=== PATIENT | female | born 1955 | race Caucasian/White ===

== ENCOUNTER 2022-09-14 22:22 | Outpatient (CLI) | payer OTHER, MEDICARE, SELFPAY ==
[2022-09-14 13:28] LABS: Albumin* 4.7 g/dL (3.3-5.0); Chloride* 103 mmol/L (96-114); Sodium* 136 mmol/L (135-149)
[2022-09-14 13:29] LABS: Potassium* 4.5 mmol/L (3.6-5.1)
[2022-09-14 13:31] LABS: Alkaline Phosphatase* 70 U/L (40-150); Aspartate Amino Transferase* 41 U/L (12-35); Bilirubin Total* 0.8 mg/dL (0.1-1.5); Blood Urea Nitrogen* 20 mg/dL (7-30); Carbon Dioxide* 23 mmol/L (20-32); Cholesterol* 168 mg/dL (90-199); Creatinine* 1.1 mg/dL (0.5-1.5); Estimated Glomerular Filt Rate 55 ml/min; Glucose* 111 mg/dL (60-115); Total Protein* 7.6 g/dL (6.0-8.3); Triglycerides* 303 mg/dL (40-149)
[2022-09-14 13:32] LABS: Alanine Aminotransferase* 27 U/L (4-35); Calcium* 9.7 mg/dL (8.4-10.6); HDL Cholesterol* 48 mg/dL (>=50); LDL Cholesterol Calculated 59 mg/dL (<100)
[2022-09-14 14:40] LABS: Free T4 Free Thyroxine* 1.02 ng/dL (0.70-1.85)
== END 2022-09-14 22:23 | disposition home or self-care (01) ==
PROVIDERS: PCP Physician Assistant Medical; Visit Provider Physician Assistant Medical
DX: Z00.00 Encounter for general adult medical examination without abnormal findings (principal); E03.9 Hypothyroidism, unspecified; Z13.6 Encounter for screening for cardiovascular disorders
CPT/HCPCS: 80053; 80061; 84439; 84443

== ENCOUNTER 2022-12-10 10:45 | Outpatient (CLI) | payer OTHER, SELFPAY | END 2022-12-10 10:46 | disposition home or self-care (01) | PROVIDERS: PCP Physician Assistant Medical; Visit Provider Physician Assistant Medical | DX: Z00.00 Encounter for general adult medical examination without abnormal findings (principal); E03.9 Hypothyroidism, unspecified; D64.9 Anemia, unspecified; R73.01 Impaired fasting glucose; I10 Essential (primary) hypertension; E66.01 Morbid (severe) obesity due to excess calories; E78.5 Hyperlipidemia, unspecified; R53.83 Other fatigue; R79.89 Other specified abnormal findings of blood chemistry | CPT/HCPCS: 84439; 84443 ==

== ENCOUNTER 2023-02-27 14:33 | Outpatient (CLI) | payer OTHER, SELFPAY ==
--- OUTSIDE RECORDS SUMMARY | 2023-02-27 14:36 | XMS_ITS | Continuity of Care Document ---
Author Name Unknown Organization [facility] Address [address] [place] [address] Phone Care Team Providers Care Hardware Developer Name Role Phone Matt Vizcarra Unavailable Unavailable Allergies, Adverse Reactions, Alerts Substance Reaction Status Criticality No Known Allergies Active No Inform ation Medications Medication Instructions Dosage Effective Dates (start - stop) Status Comments IRON (unknown strength) Not Available - Active TIROSINT (unknown strength) Not Available - Active ATENOLOL (unknown strength) Not Available - Active FLUOXETINE HCL (unknown strength) Not Available - Active ASPIRIN (unknown strength) Not Available - Active CRESTOR (unknown strength) Not Available - Active OMEPRAZOLE (unknown strength) Not Available - Active BUPROPION HCL (unknown strength) Not Available - Active Procedures Procedure Date Office/Outpatient Visit,[facility] 2014 Advance Directives Directive Yes / No Effective Date File Name No Information Encounters Encounter Description Practice Location Reason(s) For Visit Diagnoses Date Provider Providers Copied on Encounter [facility], [address], [place], [id number] , [place] tel:[phone] No Information 5 Lilia Gutierrez. [facility], [address], [address], [place], [id number] , [place]. tel:[phone] Office/Outpat ient Visit,[facility], [address], [place], [id number] , [place] [phone] [facility] [place] LumbagoAcquired spondylolisthesis 5 Maryuriguerita Matt. [facility], [address], [address], [place], [place], [id number] , [place]. tel:[phone] Referring Provider: Brian Rodriguez, [facility] [address], [address], [place], [address] . tel:[phone] Family History Family Member Type Diagnosis Age At Onset No Information Payers Payer name Insurance type Covered green party ID Authorsilvia castro(s) [facility] [id number] [facility] [id number] Social History Type Description Quantity Date Captured Comments Sex Female Smoking Status No Information Chief Complaint And Reason For Visit No Information Reason For Referral Reason For Referral No Information Plan Of Treatment Date Type Action Status Future Order: Radiology Order AP /Lat/Flex/Ext Lumb (APLatFlExL), Ordered on: Ordered History Of Present Illness Encounter Date Complaint History Of Prese nt Illness No Information Functional Status Date Functional Assessmen t No Information Instructions Date Instruction Additional Infor mation No Information Assessments Type Assessment Date No Information Patient Care Teams Name Effective Dates (start - stop) Status Members No Information
--- NOTE | 2023-02-27 15:00 | CRLHL7_ITS ---
For Patients: As a result of the Cures Act, medical imaging exams and procedure reports are released immediately into your electronic medical record. You may view this report before your referring provider. If you have questions, please contact your health care provider. BILATERAL SCREENING MAMMOGRAM WITH COMPUTER-AIDED DETECTION AND TOMOSYNTHESIS TECHNIQUE: CC and MLO views were obtained. These mammographic images have been obtained using full-field digital technique. These mammographic images were interpreted with the benefit of computer-aided detection. Breast Tomosynthesis was used in this interpretation. COMPARISON FILM: 10/31/21, 11/01/20, 10/26/19. FINDINGS: The breasts are almost entirely fatty IMPRESSION: There is no radiographic evidence for malignancy. ASSESSMENT: BI-RADS Category 1: Negative RECOMMENDATION: Routine screening mammogram in 1 year. A lay language report of this examination will be provided to the patient. Rohan Nguyen M.D. Diagnostic/Nuclear Medicine Radiologist [email or web address] FREDERICK/Dictated by: Rohan Nguyen MD @ 03/01/2023 9:52:00 AM (Electronically Signed)
== END 2023-02-27 14:34 | disposition home or self-care (01) ==
LOC: MAMMO 14:34
PROVIDERS: PCP Physician Assistant Medical; Visit Provider Physician Assistant Medical
DX: Z12.31 Encounter for screening mammogram for malignant neoplasm of breast (principal)
CPT/HCPCS: 77063; 77067

== ENCOUNTER 2023-03-04 11:11 | Outpatient (CLI) | payer OTHER, SELFPAY ==
--- OUTSIDE RECORDS SUMMARY | 2023-03-04 11:14 | XMS_ITS | Continuity of Care Document ---
Author Name Unknown Organization [facility] Address [address] [place] [address] Phone Care Team Providers Care Dinker Name Role Phone Matt Vizcarra Unavailable Unavailable [...] Available - Active Procedures Procedure Date Office/Outpatient Visit,[facility] 2014 Advance Directives Directive Yes / No Effective Date File Name No Information Encounters Encounter Description Practice Location Reason(s) For Visit Diagnoses Date Provider Providers Copied on Encounter [facility], [address], [place], [id number] , [place] tel:[phone] No Information 5 Lilia Gutierrez. [facility], [address], [address], [place], [id number] , [place]. tel:[phone] Office/Outpat ient Visit,[facility], [address], [place], [id number] , [place] [phone] [facility] [place] LumbagoAcquired spondylolisthesis 5 Maryuriguerita Matt. [facility], [address], [address], [place], [place], [id number] , [place]. tel:[phone] Referring Provider: Brian Rodriguez, [facility] [address], [address], [place], [address] . tel:[phone] Family History Family Member Type Diagnosis Age At Onset No Information Payers Payer name Insurance type Covered libertarian ID Authorsilvia castro(s) [facility] [id number] [facility] [id number] Social History Type Description Quantity Date Captured [...]
== END 2023-03-04 11:12 | disposition home or self-care (01) ==
PROVIDERS: PCP Physician Assistant Medical; Visit Provider Physician Assistant Medical
DX: E03.9 Hypothyroidism, unspecified (principal); D64.9 Anemia, unspecified; E66.01 Morbid (severe) obesity due to excess calories; I10 Essential (primary) hypertension; E78.5 Hyperlipidemia, unspecified; R53.83 Other fatigue; R79.89 Other specified abnormal findings of blood chemistry; R73.01 Impaired fasting glucose
CPT/HCPCS: 82607; 84443

== ENCOUNTER 2023-12-19 08:55 | Outpatient (CLI) | payer OTHER, SELFPAY ==
--- OUTSIDE RECORDS SUMMARY | 2023-12-19 08:58 | XMS_ITS | Encounter Summary ---
Author Name Unknown Organization [facility] Address [address] [place] [address] Care Team Providers Care Wood Handler Name Role Phone Ira Quinonez P.A.-C. Primary Care Provider [phone] Reason for Referral * Outpatient (Routine) - Authorized Specialty Diagnoses / Procedures Referred By Steffany bhatti Referred To Contact Ira Quinonez P.A.-C. [address], [place] [address] [facility] Region Referral ID Status Reason Start Date Expiration Date V isits Requested Visits Authorized [id number] Authorized 11/12/2023 05/13/2025 1 1 Scheduling Instructions Nurse AWV Do not schedule prior to due date to ensure insurance coverage Visit: Medicare Annual Wellness Never done. 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 [address] [place] [address] [facility] Region Referral ID Status Reason Start Date Expiration Date V isits Requested Visits Authorized [id number] Authorized 11/12/2023 05/13/2025 1 1 Scheduling Instructions Medicare annual provider visit/HCC gaps Do not schedule prior to due date to ensure insurance coverage Visit: Medicare Annual Wellness Never done. 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 [address] [place] [phone] [facility] Region Referral ID Status Reason Start Date Expiration Date V isits Requested Visits Authorized [id number] Authorized 11/12/2023 11/11/2024 1 1 CLEANING MACHINE OPERATOR Encounter Details Date Type Department Care Team (Late st Contact Info) Description 11/12/2023 Orders [facility] [address] [address] Screening Examination Diabetes Mellitus; Deficiency Estrogen Post Menopausal; Hyperlipidemia Social History Tobacco Use Types Packs/Day Years Used Date Smoking Tobacco: Former Smokeless Tobacco: Former Alcohol Use Standard Drinks/Week Comments Yes 7 (1 standard drink = 0.6 oz pur e alcohol) [facility] Utilities Answer Date Recorded In the past 12 months has [facility] [employer], gas, oil, or water [email or web address] threatened to shut off services in your home? No 09/10/2023 Humiliation, Afraid, Rape, and Kick questionnair e Answer Date Recorded Within the last year, have y ou been afraid of your partner or ex-partner? No 06/15/2021 Within the last year, have y ou been humiliated or emotionally abused in other ways by your partner or ex-partner? No Within the last year, have y ou been kicked, hit, slapped, or otherwise physically hurt by your partner or ex-partner? No 06/15/2021 Within the last year, have y ou been raped or forced to have any kind of sexual activity by your partner or ex-partner? No 06/15/2021 Social Connection and Isolat ion Panel [NHANES] Answer Date Recorded In a typical week, how many times do you talk on the phone with family, friends, or neighbors? More than three times a week 06/15/2021 How often do you get togethe r with friends or relatives? More than three times a week 06/15/2021 How often do you attend chur ch or jain services? More than 4 times per year 06/15/2021 Do you belong to any clubs o r organizations such as buddhism groups, unions, fraternal or athletic groups, or school groups? Yes 06/15/2021 How often do you attend meet ings of the clubs or organizations you belong to? More than 4 times per year 06/15/2021 Are you , , di vorced, , never , or living with a partner? 06/15/2021 AUDIT-C Answer Date Recorded Q1: How often do you have a drink containing alc ohol? 2-3 times a week 06/15/2021 Q2: How many drinks containi ng alcohol do you have on a typical day when you are drinking? 1 or 2 06/15/2021 Q3: How often do you have si x or more drinks on one occasion? Never 06/15/2021 Overall Financial Resource Strain (CARDIA) Answe r Date Recorded How hard is it for you to pa y for the very basics like food, housing, medical care, and heating? Not hard at all 06/15/2021 PHQ-2 Answer Date Recorded PHQ-2 Score 0 06/19/2021 [facility] - Occupational Stress Questionnaire Answer Date Recorded Do you feel stress - tense, restless, nervous, or anxious, or unable to sleep at night because your mind is troubled all the time - these days? Only a little 06/15/2021 Exercise Vital Sign Answer Date Recorde d On average, how many days pe r week do you engage in moderate to strenuous exercise (like a brisk walk)? Patient declined On average, how many minutes do you engage in exercise at this level? Patient declined 09/10/2023 Hunger Vital Sign Answer Date Recorded Within the past 12 months, y ou worried that your food would run out before you got the money to buy more. Never true 09/10/19 24 Within the past 12 months, t he food you bought just didn't last and you didn't have money to get more. Never true 09/10/2023 PRAPARE - Transportation Answer Date Re corded In the past 12 months, has l ack of transportation kept you from medical appointments or from getting medications? No 10/2023 In the past 12 months, has l ack of transportation kept you from meetings, work, or from getting things needed for daily living? No 09/10/2023 Nutrition Answer Date Recorded Nutrition: EVOO Fat Source Yes 09/10 On average, how many serving s of fruits and vegetables do you eat per day (serving size is equal to 1 cup or approximately the size of a tennis ball)? 0-2 09/10/2023 Dental Answer Date Recorded Dental: Regular Dentist Yes 09/14/19 Employment Answer Date Recorded Employment status Retired 09/10/2023 Housing Stability Answer Date Recorded What is your living situation today? I have a [facility] place to live 09/10/2023 Education Answer Date Recorded What is the highest level of school you have completed or the highest degree you have received? Associate degree: occupational, technical, or vocational program 12/01/2020 Sex and Gender Information Value Date Recorded Sex Assigned at Female 12/30/2018 5:42 PM CDT Gender Identity Female 12/30/2018 5:42 PM CDT Sexual Orientation Straight 12/30/2018 5: 42 PM CDT documented as of this encounter Plan of Treatment Scheduled Orders Name Type Priority Associated Diagnoses Orde r Schedule Glucose, Fasting Lab Routine Screening Examination Diabetes Mellitus Expected: 11/26/2023, Expires: 05/10/2024 BMD Bone Density Spine Hips Imaging RAD - Routine (most inpatients and all outpatients) Deficiency Estrogen Post Menopausal Expected: 11/26/2023, Expires: 05/10/2024 Lipid Panel Lab Routine Hyperlipidemia Expected: 11/26/2023, Expires: 05/10/2024 Scheduled Referrals Name Type Priority Associated Diagnoses Orde r Schedule Family Medicine office visit (clinic) Outpatient Referral Routine Expected: 12/10/2023, Expires: 05/10/2024 Primary Care nurse visit (clinic) - [facility]; Medicare Annual Wellness Outpatient Referral Routine Expected: 12/10/2023, Expires: 05/10/2024 documented as of this encounter Visit Diagnoses Diagnosis Screening Examination Diabetes Mellitus Deficiency Estrogen Post Menopausal Hyperlipidemia documented in this encounter Additional Health Concerns Assessment Noted Time PHQ-9 Depression Total Score: 4 08/06/20 17 8:54 AM 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 [address] [address] PCP - General 11/24/20 documented as of this encounter
--- OUTSIDE RECORDS SUMMARY | 2023-12-19 08:58 | XMS_ITS | Clinical Summary ---
Author Name Unknown Organization [facility] Address [address] [place] [address] Care Team Providers Care Tank Charger Name Role Phone Ira Quinonez P.A.-C. Primary Care Provider [phone] Source Comments Patient records contain information from all sites at [facility]. For routine questions regarding patient records, call [phone] during business hours, M-F 8:00 AM - 5:00 PM Central Time. Record requests for emergency care only can be directed to [phone] at any time.[facility] Allergies Active Allergy Reactions Criticality Noted Date Comments Lisinopril Cough 11/22/2017 Medications Medication Sig Dispensed Refills Start Date End Date Status aspirin (LO-DOSE ASPIRIN) [address] tablet Take 1 tablet by mouth daily. 0 05/01/2010 Active atenolol (for_TENORMIN) 50 mg tablet Take 1 tablet by mouth daily. 0 06/29/2016 Active multivitamin tablet Take by mouth daily. 0 05/01/2010 Active rosuvastatin (for_CRESTOR) 20 mg tablet Take 20 mg by mouth daily. 0 Active chlorthalidone (for_HYGROTEN) 50 mg tablet Take 50 mg by mouth daily. 0 Active FLUoxetine (for_PROzac) 40 mg capsule Take 1 capsule (40 mg total) by mouth daily. 90 capsule 3 08/06/2017 Active levothyroxine (for_SYNTHROID, LEVOTHROID) 112 mcg tablet Take 1 tablet (112 mcg total) by mouth daily. 90 tablet 3 08/06/2017 Active pfeipbuj-ozyhzp-RJ -thonzonium (CORTISPORIN-TC) 3.3-3-10-0.5 mg/mL drops,suspension Administer 5 drops into each ear 3 (three) times a day as needed (ear itch). 30 mL 3 08/06/2017 Active omeprazole 20 mg tablet,delayed release (DR/EC) Take 1 tablet (20 mg total) by mouth daily. 90 tablet 3 08/06/2017 Active buPROPion (WELLBUTRIN SR) 150 mg 12 hr tablet Take 1 tablet (150 mg total) by mouth daily. Appt due please 90 tablet 0 08/11/2018 Active irbesartan (AVAPRO) 150 mg tablet Take 150 mg by mouth daily. 0 Active spironolactone (ALDACTONE) 25 mg tablet Take 25 mg by mouth daily. 0 Active melatonin 1 mg tablet Take 10 mg by mouth at bedtime. 0 Active ferrous sulfate 325 mg (65 mg iron) tablet Take 325 mg by mouth daily. 0 Active nystatin (NYSTOP) 100,000 unit/gram powder Apply 1 application topically 2 (two) times a day. PRN 0 Active clobetasoL (TEMOVATE) 0.05 % cream Apply 1 application topically as needed. PRN 0 Active triamcinolone (KENALOG) 0.5 % cream Apply 1 application topically as needed. 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 12/02/2020 Hernia Hiatal 12/02/2020 Elevated Liver Function Test 12/02/2020 Chronic Gastric Ulcer Without Hemorrhage Or Perf oration 12/02/2020 Morbid Obesity Body Mass Ind ex Greater Than Or Equal To 40 Adult 08/06/2017 Hypothyroidism 08/06/2017 Gastroesophageal Reflux Disease 08/06/2017 Palpitations 01/03/2017 Sciatica 06/29/2016 Dyspnea On Exertion 01/18/2015 Radiculopathy Lumbar 06/26/2010 Stress Incontinence Female Male 09/07/2009 Hypertension Essential Primary 08/29/2009 Overview: Hypertension Pure Hypercholesterolemia 08/29/2009 Overview: Depression Anxiety Apnea Sleep Obstructive 08/29/2009 Rosacea 04/21/2007 Hyperlipidemia 04/21/2007 Depression Anxiety 04/21/2007 Encounters Date Type Department Care Team Description 11/12/2023 Orders Only [facility] Ira Quinonez P.A.-C. 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 Cataract Senile Nuclear Sclerosis Bilateral (Primary Dx); Myopia Bilateral from Last 3 Months Immunizations Name Administration Dates Next Due DTaP (Infanrix, Tripedia) 04/28/2009 H1N1 All Forms 08/29/2009 H1N1 Inj 08/24/2009 Influenza (IM) Preservative Free 08/29/2009,09/2007 Influenza Split 08/29/2009 Influenza TIV (IM) 06/18/2012,,08/20/2009,2006 Influenza high dose QV(65 ye ars or older) (PF) 08/18/2021 Influenza, Injectable, Quadrivalent 06/09,07/01/2019,07/03/2018,2014 Influenza, Seasonal, Injectable 06/18/2012,07/02,07/14/2007 Influenza, Unspecified 06/20/2017,2015,06/21/2015,2013,06/28/2010,07/14/2007 RZV (SHINGRIX) 02/28/2021,11/02/2020 SARS-COV-2 (COVID-19) - MODERNA(Discontinued) 03/06/2022,08/18/2021,12/26/2020,2020 Td Preservative Free (TENIVA C, DECAVAC) 04/28/2009,02/26/2000 Td, (Adult) Unspecified 04/09/2009,02/26/2000 Tdap 10/05/2019,04/28/2009 influenza vaccine QV(FLUBLOK ) (18 years or older) (PF) 06/21/2020 influenza vaccine quad (FLUZONE/FLUARIX) (6 months and older)(PF) 07/03/2018,06/20/2017,06/29/2016,2012 Family History Medical History Relation Name Comments Coronary artery disease Brother Heart attack Brother Hyperlipidemia Brother Hypertension Brother Coronary artery disease Father Heart attack Father Hyperlipidemia Father Hypertension Father Breast cancer Father's Sister Stroke Grandfather Coronary artery disease Mother Heart attack Mother Hyperlipidemia Mother Relation Name Status Comments Brother (Age 46) Cause [place] Father (Age 65) [place] Father's Sister Alive Grandfather Stroke at early age Mother (Age 62) Cause [place] Social History Tobacco Use Types Packs/Day Years Used Date Smoking Tobacco: Former Smokeless Tobacco: Former Alcohol Use Standard Drinks/Week Comments Yes 7 (1 standard drink = 0.6 oz pur e alcohol) [facility] [employer] Answer Date Recorded In the past 12 months has e [employer], [employer], oil, or water [employer] threatened to shut off services in your [...] week 06/15/2021 How often do you attend up health system or anabaptist services? More than 4 times per year 06/15/2021 Do you belong to any clubs o r organizations such as tenriism groups, unions, fraternal or athletic groups, or [...] Answer Date Recorded PHQ-2 Score 0 06/19/2021 [facility] - Occupational Stress [...] your living situation today? I have a [facility] place to live 09/10/2023 Education Answer [...] Orientation Straight 12/30/2018 5: 42 PM CDT Last Filed Vital Signs Vital Sign Reading Time Taken Comments Blood Pressure 114/69 06/19/2021 9:[address] Pulse 66 06/19/2021 9:22 AM CDT Temperature 36.4 ??C (97.5 ??F) 06/19/2021 9:22 AM CD T Respiratory Rate 16 06/19/2021 9:22 AM CDT Oxygen Saturation 95% 06/19/2021 9:22 AM CDT Inhaled Oxygen Concentration - - Weight 126 kg (277 lb 9 oz) 06/19/2021 9:22 AM C DT Height 162 cm (5' 3.78) 06/19/2021 9:22 AM CDT Body Mass Index 47.97 06/19/2021 9:22 AM CDT Plan of Treatment Health Maintenance Due Date Last Done Comments Bone Density Scan (Osteoporo sis Screen) 1956 CT Colonography 1955 Cologuard 1955 Office Visit for Blood Press ure Check / Re-check 1955 Visit: Medicare Annual Wellness 1955 Thyroid Stimulating Hormone (TSH) test for thyroid function 12/28/2017 12/28/2016, 09/11/2016, 06/29/2016, Additional history exists Creatinine Level (Kidney Fun ction Test) 05/14/2019 05/14/2018, 04/23/2018, 02/20/2018, Additional history exists Potassium Level 05/14/2019 05/14/2018, 04/09, 02/20/2018, Additional history exists Sodium Level 05/14/2019 05/14/2018, 04/09, 02/20/2018, Additional history exists Fasting Glucose for Diabetes Screening 05/14/2021 05/14/2018, 04/23/2018, 02/20/2018, Additional history exists Visit: Chronic Disease, age 18+ 06/19/2022 Mammogram 10/31/2022 10/31/2021, 10/11, 10/26/2019, Additional history exists Depression Screening (Annual PHQ-2) 09/09/2023 Fall Risk Screen (Annual) 09/09/2023 Lipid (Cholesterol) Screening 02/10/2024, 12/28/2016, 11/14/2016, Additional history exists Colonoscopy 07/06/2024 07/06/2021, 05/10, 02/04/2015, Additional history exists Colorectal Cancer Surveillance 07/06/2024 DTaP,Tdap,and Td Vaccines (5 - Td or Tdap) 10/05/2029 10/05/2019, 04/28/2009, 04/28/2009, Additional history exists Hepatitis C Screening Completed 08/06/2017 Zoster Vaccines Completed 02/28/2021, 11/02/2020 Cervical Cancer Screening Discontinued 2020, 05/02/2020, 08/18/2018, Additional history exists Pneumococcal vaccine (65+ years) Completed 12/11/19, 11/13/2021 COVID-19 Vaccine Completed 06/26/2023, , 08/18/2021, Additional history exists Influenza Vaccine Completed 06/26/2023, , 08/18/2021, Additional history exists Advance Directives For more information, please contact: [phone] Documents on File Type Date Recorded 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 See document viewer. Care Teams Tank Charger Relationship Specialty Start Date End Date Ira Quinonez P.A.-C. [address] [place] [place] [address] PCP - General 11/24/20
--- OUTSIDE RECORDS SUMMARY | 2023-12-19 08:58 | XMS_ITS | Referral Summary ---
Author Name Unknown Organization [facility] Address [address] [place] [address] Care Team Providers Care Assurance Assistant Name Role Phone Ira QuinonezAJames-C. Primary Care Provider [phone]- [phone] Source Comments Patient records contain information from all sites at [facility]. For routine questions regarding patient records, call [phone] during business hours, M-F 8:00 AM - 5:00 PM Central Time. Record requests for emergency care only can be directed to [phone] at any time.[facility] Encounters Date Type Department Care Team Description 11/12/2023 Orders Only [facility] PCP [facility] MNT Ira Quinonez, P.A.-C. Screening Examination Diabetes Mellitus; Deficiency Estrogen Post Menopausal; Hyperlipidemia 09/24/2023 10:30 AM TURPENTINE FARMER Office Visit Department of Ophthalmology in [place], [place] [address] [facility] [place] [phone] Dae Sánchez M.D. Cataract Senile Nuclear Sclerosis Bilateral (Primary Dx); Myopia Bilateral from Last 3 Months Allergies Active Allergy Reactions Criticality Noted Date [...] mouth daily. 90 tablet 3 08/06/2017 Active ucvohres-rvvbag-VZ -thonzonium (CORTISPORIN-TC) 3.3-3-10-0.5 mg/mL drops,suspension Administer 5 [...] Rosacea 04/21/2007 Hyperlipidemia 04/21/2007 Depression Anxiety 04/21/2007 Immunizations Name Administration Dates Next Due DTaP [...] quad (FLUZONE/FLUARIX) (6 months and older)(PF) 07/03/2018,06/20/2017,06/29/2016,2012 Social History Tobacco Use Types Packs/Day Years Used Date Smoking Tobacco: Former Smokeless Tobacco: Former Alcohol Use Standard Drinks/Week Comments Yes 7 (1 standard drink = 0.6 oz pur e alcohol) [facility] Utilities Answer Date Recorded In the past 12 months has e [employer], [employer], or water [employer] threatened to shut off services in your [...] 06/15/2021 How often do you attend chur or evangelical services? More than 4 times per year 06/15/2021 Do you belong to any clubs o r organizations such as mosque groups, unions, fraternal or athletic groups, or [...] Answer Date Recorded PHQ-2 Score 0 06/19/2021 [facility] - [...] Date Recorded Dental: Regular Dentist Yes 09/14/19 23 Employment Answer Date Recorded Employment status Retired 09/10/2023 Housing Stability Answer Date Recorded What is your living situation today? I have a [facility] [place] place to live 09/10/2023 Education Answer Date [...] 06/19/2021 9:22 AM CDT Plan of Treatment Not on file Advance Directives For more information, please contact: [phone] Documents on File Type Date Recorded Patient Financial Data Analyst Expl anation Advance Directives 02/05/2012 12:00 AM Leg acy document. See document viewer. Care Teams Assurance Assistant Relationship Specialty Start Date End Date Ira Quinonez P.A.-C. [address] [place] [address] PCP - General 11/24/20
--- OUTSIDE RECORDS SUMMARY | 2023-12-19 08:58 | XMS_ITS | Clinical Summary ---
Author Name Unknown Organization [facility] Address [place], [place] [address] Care Team Providers Care Bark Skinner Name Role Phone Teena Gaytan PA-C Primary Care Provider [phone] Allergies Active Allergy Reactions Criticality Noted Date Comments Lisinopril Cough 11/22/2017 Medications Medication Sig Dispensed Refills Start Date End Date Status fluoxetine (PROZAC) 40 mg capsule Take 40 mg by mouth every morning. Active OMEPRAZOLE ORAL Take 20 mg by mouth once daily. Active multivitamin (MVI) tablet Take 1 Tablet by mouth once daily. Active aspirin 81 mg tablet Take 81 mg by mouth once daily with a meal. Active triamcinolone 0.5% (ARISTOCORT) 0.5 % cream APPLY TOPICALLY TO AREAS OF ITCHING / BUG BITES TWICE DAILY NEEDED 06/02/2020 Active levothyroxine (SYNTHROID) 150 mcg tabletIndications:Hy pothyroidism, unspecified type Take 1 Tablet (150 mcg) by mouth before breakfast. 09/23/2023 Active metFORMIN (GLUCOPHAGE XR) 500 mg Extended-Release tablet Take 500 mg by mouth two times daily with meals. 07/15/2023 Active atenoloL (TENORMIN) 50 mg tabletIndications:HT N (hypertension) Take 1 Tablet (50 mg) by mouth once daily. 90 Tablet 3 09/23/2023 Active irbesartan (AVAPRO) 300 mg tabletIndications:Hy pertension, unspecified type Take 1 Tablet (300 mg) by mouth once daily. 90 Tablet 3 09/23/2023 Active rosuvastatin (CRESTOR) 20 mg tabletIndications: HD (arteriosclerotic heart disease) Take 1 Tablet (20 mg) by mouth once daily. 90 Tablet 3 09/23/2023 Active spironolactone (ALDACTONE) 25 mg tabletIndications:HT N (hypertension),Edema , unspecified type Take 1 Tablet (25 mg) by mouth once daily. 90 Tablet 3 09/23/2023 Active chlorthalidone (HYGROTON) 50 mg tabletIndications:HT N (hypertension) Take 1 Tablet (50 mg) by mouth every morning. 90 Tablet 3 09/23/2023 Active Active Problems Problem Noted Date Diagnosed Date ASHD (arteriosclerotic heart disease) 01/03/2017 Palpitations 01/03/2017 HTN (hypertension) 01/03/2017 Dyslipidemia 01/03/2017 JONATHON (obstructive sleep apnea) 01/03/2017 Urinary, incontinence, stress female 09/07/2009 Encounters Date Type Department Care Team Description 09/23/2023 2:30 PM EMBOSSING TOOL SETTER Office Visit [facility] [address] [place] [phone] Michi Urbina MD Follow Up (Annual F/U Pt states feeling well today, no current cardiac symptoms at this time. Here so she can get refills on all cardiac meds. ) 09/23/2023 Travel 09/23/2023 Refill [facility] [address] [place] [phone] Michi Urbina MD Refill Request (Chlorthalidone) from Last 3 Months Immunizations Name Administration Dates Next Due DTaP 04/28/2009 Influenza A (H1N1), Inactivated 08/29/2009 Influenza A (H1N1), Inactiva joseph (Age >=3 Years) 08/24/2009 Influenza Virus, Unspecified 06/20/2017, 06/29/2016,06/21/2015,2013,06/28/2010,07/14/2007 Influenza, IIV3 (Age 6-35 mos) 08/29/2009,2007 Influenza, IIV3 (Age >=3 years) 06/18/20 12,2011,08/20/2009,2006 Influenza, IIV4 07/03/2018, 7,06/29/2016,2012 Influenza, IIV4 (=>6mos) MDV 06/21/2015 Td (Age >=7 Years) 04/09/2009,02/26/2000 Td, Preservative Free (age > = 7 Years) 02/26/2000 Tdap 04/28/2009 Social History Tobacco Use Types Packs/Day Years Used Date Smoking Tobacco: Former Cigarettes Q uit: 01/04/1988 Smokeless Tobacco: Never Tobacco Cessation:Counseling Given: No Comments:Smoked about 17 years (1-1.5 packs a day) Alcohol Use Standard Drinks/Week Comments Not Currently 0 (1 standard drink = 0.6 oz pur e alcohol) social drinker Social Connections Answer Date Recorded Frequency of Communication with Friends and Fami ly Not on file 09/09/2021 Financial Resource Strain Answer Date R ecorded Difficulty of Paying Living Expenses Not on file 09/09/2021 Difficulty of Paying Living Expenses Not on file 09/09/2021 Sex and Gender Information Value Date Recorded Sex Assigned at Not on file Gender Identity Not on file Sexual Orientation Not on file Obstetrics History Last Filed Vital Signs Vital Sign Reading Time Taken Comments Blood Pressure 130/70 09/23/2023 2:14 PM EMBOSSING TOOL SETTER Pulse 66 09/23/2023 2:14 PM EMBOSSING TOOL SETTER Temperature 36.3 ??C (97.4 ??F) 07/06/2021 1 1:30 AM CDT Respiratory Rate 16 07/06/2021 11:5 7 AM CDT Oxygen Saturation 96% 09/23/2023 2:14 PM EMBOSSING TOOL SETTER Inhaled Oxygen Concentration - - Weight 133.2 kg (293 lb 9.6 oz) 09/23/2023 2:14 PM EMBOSSING TOOL SETTER Height 160 cm (5' 3) 09/23/2023 2:14 PM EMBOSSING TOOL SETTER Body Mass Index 52.01 09/23/2023 2:14 PM EMBOSSING TOOL SETTER Plan of Treatment Health Maintenance Due Date Last Done Comments Depression screening for age 12+ 1968 Hepatitis C screening for ag e 18-79 1974 Mammogram for age 45-75 2001 Zoster (shingles) series for age 50+ (1 of 2) 2006 Tetanus booster 04/28/2019 04/28/2009, 08/0 09/2008, 02/26/2000, Additional history exists DEXA/DXA scan for age 65+ 2021 Medicare Wellness for age 65+ 2021 Pneumococcal series for age 65+ (1 of 1 - PCV) 2021 Lipids for age 45-75 02/10/2024 02/09/2019, 01/23/20 18 Influenza for age 65+ 05/10/2024 07/03/2018 , 06/20/2017, 06/20/2017, Additional history exists BMI (ht and wt on same day) for age 18+ 09/23/2024 09/23/2023, 09/17/2022, 10/16/2021, Additional history exists Colonoscopy through age 75 07/06/2031 07/06/2021, Tdap Completed 04/28/2009 COVID-19 vaccine series Completed 06/26/20, 03/06/2022, 08/18/2021, Additional history exists Medical Devices Implanted Type Area Revenue Stamper Device Identifier Shelf Expiration Date Model / Serial / Lot Sys Urethral Support Align 50cm - [id number] Implanted:Qty: 1 on 09/07/2009 at [facility] 07/10/2011 [id number] / / [id number] Procedures Procedure Name Priority Date/Time Associated Diagnosis Comments COLONOSCOPY 07/06/2021 10:49 AM CDT LIPID PANEL Routine 02/09/2019 2:47 PM CDT ASHD (arteriosclerotic heart disease) from Last 3 Months or Most Recently Relevant to Health Maintenance Results * COLONOSCOPY (07/06/2021 10:49 AM CDT) 07/06/2021 10:4 9 AM CDT Narrative Transcriptions Pablo Flor MD - 07/06/2021 11:28 AM CDT Patient Name: Meliza Ho Procedure Date: 07/06/2021 Gender: Female Date of : 1955 Admit Type: Ambulatory Procedure: Colonoscopy Proceduralist: Pablo Flor MD Indications/Pre-Op Diagnosis: High risk colon cancer surveillance:Personal history of colonic polyps Medications: Monitored Anesthesia Care Procedure Description: The procedure, indications, potential complications, (bleeding, perforation, infection, adverse medication reaction, missed lesionsor polyps) and alternatives available were explained to the patient, who appeared to understand and indicated this. Opportunity for questionswas provided and informed consent obtained. The colonoscopy was passed through the anus and advanced to theterminal ileum. The colonoscopy was performed without difficulty. The patient tolerated the procedure well. The quality of the bowel preparationwas evaluated using the BBPS ([place] Bowel Preparation Scale) with scores of: Right Colon = 3, Transverse Colon = 3 and Left Colon = 3 (entire mucosa seen well with no residual staining, small fragments of stoolor opaque liquid). The total BBPS score equals 9. The ileocecal valvewas photographed. Complications: No immediate complications. Estimated Blood Loss & Specimen: Estimated blood loss: none. Findings: The perianal and digital rectal examinations were normal. Two sessile polyps were found in the transverse colon and ascending colon. The polyps were 4 to 6 mm in size. These polyps were removedwith a cold snare. Resection and retrieval were complete. The exam was otherwise without abnormality on direct and retroflexion views. Impressions/Post-Op Diagnosis: - Two 4 to 6 mm polyps in the transverse colon and in the ascending colon, removed with a cold snare. Resected and retrieved. - The examination was otherwise normal on direct and retroflexionviews. Recommendation: - Await pathology results. - Repeat colonoscopy in 3 years for surveillance. Moderate Sedation: MAC Pablo Flor MD 07/06/2021 11:28:16 AM This report has been signed electronically. Note Initiated On: 07/06/2021 10:49 AM Pablo Flor MD PROCEDURE ORD * (ABNORMAL) LIPID PANEL (02/09/2019 2:47 PM CDT) CHOLESTEROL,TOTAL 144 100 - 199 mg/dL 02/09/2019 6:46 PM CDT [facility] [employer] [facility] TRIGLYCERIDES 263(H) <150 mg/dL 02/09/2019 6:46 PM CDT [facility] HDL CHOLESTEROL 45 >40 mg/dL 9 6:46 PM CDT [facility] NON-HDL CHOLESTEROL 99 <145 mg/dl 02/09/2019 6:46 PM CDT [facility] CHOL/HDL RATIO 3.20 <4.50 02/09/2019 6:46 PM CDT [facility] LDL CHOLESTEROL 46 <=130 mg/dL 02/09/2019 6:46 PM CDT [facility] PROVIDER ORDERED STATUS RANDOM 02/09/2019 6:46 PM CDT [facility] Blood BLOOD SPECIMEN / Unknown Venipuncture / Unknown 02/09/2019 2:47 PM CDT 02/09/2019 2:47 PM CDT Michi Urbina MD CHEMISTRY [facility] [address] [place] [address], from Last 3 Months or Most Recently Relevant to Health Maintenance Advance Directives * Full Code (Latest Code Status on File) Date Activated Date Inactivated Comments 07/06/2021 10:21 AM 07/06/2021 3:31 PM Question Answer Comments Code Status Discussion: Not Discussed * Full Code Date Activated Date Inactivated Comments 05/25/2020 10:14 AM 05/25/2020 3:18 PM Question Answer Comments Code Status Discussion: Not Discussed * Full Code Date Activated Date Inactivated Comments 04/10/2010 7:43 AM 04/10/2010 5:39 PM * Full Code Date Activated Date Inactivated Comments 09/07/2009 11:27 AM 09/07/2009 11:17 PM Care Teams Bark Skinner Relationship Specialty Start Date End Date Teena Gaytan PA-C [address] [place] [address] PCP - General Emergency Medicine 04/27/20
--- OUTSIDE RECORDS SUMMARY | 2023-12-19 08:58 | XMS_ITS | Continuity of Care Document ---
Author Name Unknown Organization [facility] Address [address] [place] [address] Phone Care Team Providers Care Rotary Drum Tanner Name Role Phone Matt Vizcarra Unavailable Unavailable Allergies, Adverse Reactions, Alerts Substance Reaction Status Criticality No Known Allergies Active No Inform ation Medications Medication Instructions Dosage Effective Dates (start - stop) Status Comments BUPROPION HCL (unknown strength) Not Available - Active OMEPRAZOLE (unknown strength) Not Available - Active CRESTOR (unknown strength) Not Available - Active ASPIRIN (unknown strength) Not Available - Active FLUOXETINE HCL (unknown strength) Not Available - Active ATENOLOL (unknown strength) Not Available - Active TIROSINT (unknown strength) Not Available - Active IRON (unknown strength) Not Available - Active Procedures Procedure Date Office/Outpatient Visit,[facility] 2014 Advance Directives Directive Yes / No Effective Date File Name No Information Encounters Encounter Description Practice Location Reason(s) For Visit Diagnoses Date Provider Providers Copied on Encounter [facility], [address], [place], [id number] , [place] tel:[phone] No Information 5 Lilia Gutierrez. [facility], [address], [address], [place], [id number] , [place]. tel:[phone] Office/Outpat ient Visit,[facility], [address], [place], [id number] , [place] [phone] [facility] [place] LumbagoAcquired spondylolisthesis 5 Maryuriguerita Matt. [facility], [address], [address], [place], [place], [id number] , [place]. tel:[phone] Referring Provider: Brian Rodriguez, [facility] [address], [address], [place], [address] . tel:[phone] Family History Family Member Type Diagnosis Age At Onset No Information Payers Payer name Insurance type Covered republican ID Authorsilvia castro(s) [facility] [id number] [facility] [id number] Social History Type Description Quantity Date Captured [...]
--- OUTSIDE RECORDS SUMMARY | 2023-12-19 08:58 | XMS_ITS ---
Author Name Unknown Organization [facility] Address [address] [place] [address] Care Team Providers Care Manager Pharmacy Name Role Phone Unavailable Unavailable Unavailable Surgery Details Not on file Complications Check Surgery Details section. Procedure Estimated Blood Loss Check Surgery Details section. Procedure Findings Check Surgery Details section. Procedure Specimens Taken Check Surgery Details section.
--- OUTSIDE RECORDS SUMMARY | 2023-12-19 08:59 | XMS_ITS | Encounter Summary ---
Author Name Unknown Organization [facility] Address [address] [place] [address] Care Team Providers Care Cotton Converter Name Role Phone Ira Quinonez P.A.-C. Primary Care Provider [phone] Reason for Referral * Outpatient (Routine) - Authorized Specialty Diagnoses / Procedures Referred By Steffany bhatti Referred To Contact Procedures OPH General eye exam Dae Sánchez M.D. [address], [place] [address] [facility] Region Referral ID Status Reason Start Date Expiration Date V isits Requested Visits Authorized [id number] Authorized 09/24/2023 09/23/2024 1 1 IO MODEL Reason for Visit * Reason Comments Follow-up * Outpatient (Routine) - Closed Specialty Diagnoses / Procedures Referred By Steffany bhatti Referred To Contact Ophthalmology Dae Sánchez M.D. [address] [place] [address] [facility] Region Referral ID Status Reason Start Date Expiration Date Visits Re quested Visits Authorized [id number] Closed 09/17/2023 09/16/2026 1 1 Encounter Details Date Type Department Care Team (Latest Contact Info) Description 09/24/2023 10:30 AM STUDIO MODEL Office Visit Department of Ophthalmology in [place], [place] [address], [place] [address] Dae Sánchez M.D. [address] [place] [address] Cataract Senile Nuclear Sclerosis Bilateral (Primary Dx); Myopia Bilateral Social History Tobacco Use Types Packs/Day Years Used Date Smoking Tobacco: Former Smokeless Tobacco: Former Alcohol Use Standard Drinks/Week Comments Yes 7 (1 standard drink = 0.6 oz pur e alcohol) [facility] Utilities Answer Date Recorded In the past 12 months has e Weekend-a-gogo, gas, oil, or water [employer] threatened to shut off services in your [...] often do you attend chur ch or scientologist services? More than 4 times per year 06/15/2021 Do you belong to any clubs o r organizations such as orthodoxy groups, unions, fraternal or athletic groups, or [...] Answer Date Recorded PHQ-2 Score 0 06/19/2021 [facility] - Occupational Stress Questionnaire Answer Date Recorded [...] PM CDT documented as of this encounter Progress Notes * Dae Sánchez M.D. - 09/24/2023 10:30 AM CST Meliza Ho was seen today for Follow-up #1 Cataract Senile Nuclear Sclerosis Bilateral #2 Myopia Bilateral Plan; Update glasses. RTC one year annual exam. N/c IO MODEL documented in this encounter Plan of Treatment Scheduled Orders Name Type Priority Associated Diagnoses Orde r Schedule OPH General eye exam Procedures Routine Expe cted: 09/24/2024 (Approximate), Expires: 12/23/2024 documented as of this encounter Visit Diagnoses Diagnosis Cataract Senile Nuclear Sclerosis Bilateral- Primary Myopia Bilateral documented in this encounter Additional Health Concerns Assessment Noted Time PHQ-9 Depression Total Score: 4 08/06/20 17 8:54 AM STUDIO MODEL documented as of this encounter Care Teams Cotton Converter Relationship Specialty Start Date End Date Ira Quinonez P.A.-C. [address] [place] [phone] PCP - General 11/24/20 documented as of this encounter
--- OUTSIDE RECORDS SUMMARY | 2023-12-19 08:59 | XMS_ITS | Encounter Summary ---
Author Name Unknown Organization [facility] Address [address] [place] [address] Care Team Providers Care Retail Planner Name Role Phone Ira Quinonez P.A.-C. Primary Care Provider [phone]- [phone] Encounter Details Date Type Department Care Team (Late st Contact Info) Description 05/17/2017 Historical Ophthalmology [facility] Dae Sánchez M.D. [address] [place] [phone] Social History Tobacco Use Types Packs/Day Years Used Date Smoking Tobacco: Former Sex and Gender Information Value Date Recorded Sex Assigned at Female 12/30/2018 5:42 PM CDT Gender Identity Female 12/30/2018 5:42 PM CDT Sexual Orientation Straight 12/30/2018 5: 42 PM CDT documented as of this encounter Progress Notes * Dae Sánchez M.D. - 05/17/2017 8:53 AM CDT Eye General CHIEF COMPLAINT CE HISTORY OF PRESENT ILLNESS Pt. states eyes have been mattering, yellow in color and itchy blurried VA in both distance and near No other concerns with eyes and VA at this time IMPRESSION / REPORT / PLAN #1 Cataracts, nuclear both eyes. Stable. #2 Myopia and astigmatism both eyes. Stable. #3 Keratitis superificial both eyes. Exposure and likely CPAP related. Plan: Optional glasses change. U/v protection. Refresh PM with goggles. F./u one year. CE/ref DIAGNOSIS #1 Cataracts, nuclear both eyes. Stable. #2 Myopia and astigmatism both eyes. Stable. #3 Keratitis superificial both eyes. Exposure and likely CPAP related. CDM Reports - EYEGEN Id: [id number] Status: Fnl documented in this encounter Plan of Treatment Not on file documented as of this encounter Visit Diagnoses Not on filedocumented in this encounter Additional Health Concerns Infection Onset Date Last Indicated Resolved Time COVID19 Pending 05/22/2020 05/22/2020 05/22/2020 9 :13 PM CDT COVID19 Pending 05/20/2021 05/21/2021 05/21/2021 1 1:30 PM CDT COVID19 Pending 2021 07/03/2021 07/04/2021 8 :36 AM CDT COVID19 Pending 07/10/2021 07/10/2021 07/11/2021 2 :43 AM CDT Assessment Noted Time PHQ-9 Depression Total Score: 0 06/29/20 16 8:10 AM CDT documented as of this encounter Care Teams Retail Planner Relationship Specialty Start Date End Date Ira Quinonez P.A.-C. [address] [place] [address] PCP - General 11/24/20 documented as of this encounter
--- OUTSIDE RECORDS SUMMARY | 2023-12-19 08:59 | XMS_ITS | Encounter Summary ---
Author Name Unknown Organization [facility] Address [address] [place] [address] Care Team Providers Care Toys And Games Hand Finisher Name Role Phone Ira Quinonez P.A.-C. Primary Care Provider [phone]- [phone] Encounter Details Date Type Department Care Team (Late st Contact Info) Description 06/07/2017 Historical Ophthalmology [facility] O[facility] Dae Sánchez M.D. [address] [place] [phone] Social History Tobacco Use Types Packs/Day Years Used Date Smoking Tobacco: Former Sex and Gender Information Value Date Recorded Sex Assigned at Female 12/30/2018 5:42 PM CDT Gender Identity Female 12/30/2018 5:42 PM CDT Sexual Orientation Straight 12/30/2018 5: 42 PM CDT documented as of this encounter Progress Notes * Dae Sánchez M.D. - 06/07/2017 8:59 AM CDT Eye General CHIEF COMPLAINT Rx recheck HISTORY OF PRESENT ILLNESS Could not accept glasses from optical- too blurry at distance and near with each eye. IMPRESSION / REPORT / PLAN #1 Cataracts, nuclear both eyes. Stable. #2 Myopia and astigmatism both eyes. Unable to tolerate new Rx. Plan: Update glasses. n/c DIAGNOSIS #1 Cataracts, nuclear both eyes. Stable. #2 Myopia and astigmatism both eyes. Unable to tolerate new Rx. CDM Reports - EYEGEN Id: [id number] Status: Fnl documented in this encounter Plan [...] documented as of this encounter Care Teams Toys And Games Hand Finisher Relationship Specialty Start Date End Date Ira Quinonez P.A.-C. [address] [place] [address] PCP - General 11/24/20 documented as of this encounter
--- OUTSIDE RECORDS SUMMARY | 2023-12-19 08:59 | XMS_ITS | Encounter Summary ---
Author Name Unknown Organization [facility] Address [address] [place] [address] Care Team Providers Care Filter Filler Name Role Phone Ira Quinonez P.A.-C. Primary Care Provider [phone] Reason for Referral * Outpatient (Routine) - Closed Specialty Diagnoses / Procedures Referred By Steffany bhatti Referred To Contact Ophthalmology Dae Sánchez M.D. [address] [address] [facility] Region Referral ID Status Reason Start Date Expiration Date Visits Re quested Visits Authorized [id number] Closed 09/17/2023 09/16/2026 1 1 PLANT OPERATOR Reason for Visit * Reason Comments Eye Exam * Appointment Request (Routine) - Closed Specialty Diagnoses / Procedures Referred By Steffany bhatti Referred To Contact Ophthalmology Referral ID Status Reason Start Date Expiration Date Visits Re quested Visits Authorized [id number] Closed 06/27/2023 06/26/2024 1 1 Encounter Details Date Type Department Care Team (Latest Contact Info) Description 09/17/2023 1:15 PM ICE PLANT OPERATOR Comprehensive Visit Department of Ophthalmology in [place], [place] [address] [place] [address] Dae Sánchez M.D. [address] [place] [address] Cataract Senile Nuclear Sclerosis Bilateral (Primary Dx); Myopia Bilateral Social History Tobacco Use Types Packs/Day Years Used Date Smoking Tobacco: Former Smokeless Tobacco: Former Alcohol Use Standard Drinks/Week Comments Yes 7 (1 standard drink = 0.6 oz pur e alcohol) [facility] Utilities Answer Date Recorded In the past 12 months has th e electric, gas, oil, or water company threatened to shut off services in your [...] Answer Date Recorded PHQ-2 Score 0 06/19/2021 [facility] - Occupational Stress Questionnaire Answer Date [...] your living situation today? [facility] 09/10/2023 Education Answer Date [...] Progress Notes * Dae Sánchez M.D. - 09/17/2023 1:15 PM CST Meliza Ho was seen today for Eye Exam #1 Cataract Senile Nuclear Sclerosis Bilateral #2 Myopia Bilateral Plan: Update glasses as desired. U/v protection. Ocular lubricants twice daily. RTC trial frame. Cex/ref PLANT OPERATOR documented in this encounter Plan of Treatment Scheduled Referrals Name Type Priority Associated Diagnoses Order Schedule Ophthalmology office visit (clinic) Outpatient Referral Routine Expected: 09/24/2023 (Approximate), Expires: 12/16/2024 documented as of this encounter Visit Diagnoses Diagnosis Cataract Senile Nuclear Sclerosis Bilateral- Primary Myopia Bilateral documented in this encounter Additional Health Concerns Assessment Noted Time PHQ-9 Depression Total Score: 4 08/06/20 17 8:54 AM ICE PLANT OPERATOR documented as of this encounter Care Teams Filter Filler Relationship Specialty Start Date End Date Ira Quinonez P.A.-C. [address] [place] [address] PCP - General 11/24/20 documented as of this encounter
== END 2023-12-19 08:56 | disposition home or self-care (01) ==
PROVIDERS: PCP Physician Assistant Medical; Visit Provider Physician Assistant Medical
DX: Z13.0 Encounter for screening for diseases of the blood and blood-forming organs and certain disorders involving the immune mechanism (principal); Z13.29 Encounter for screening for other suspected endocrine disorder; Z13.6 Encounter for screening for cardiovascular disorders; Z13.228 Encounter for screening for other metabolic disorders; Z13.21 Encounter for screening for nutritional disorder
CPT/HCPCS: 80053; 80061; 82728; 83540; 83550; 84443

== ENCOUNTER 2024-01-01 14:20 | Outpatient (CLI) | payer OTHER, SELFPAY ==
--- OUTSIDE RECORDS SUMMARY | 2024-01-01 14:23 | XMS_ITS | Continuity of Care Document ---
Author Name Unknown Organization [facility] Address [address] [place] [address] Phone Care Team Providers Care Embedded Linux Engineer Name Role Phone Matt Vizcarra Unavailable Unavailable [...] Available - Active Procedures Procedure Date Office/Outpatient Visit,[facility] 2014 Advance Directives Directive Yes / No Effective Date File Name No Information Encounters Encounter Description Practice Location Reason(s) For Visit Diagnoses Date Provider Providers Copied on Encounter [facility], [address], [place], [id number] , [place] tel:[phone] No Information 5 Lilia Gutierrez. [facility], [address], [address], [place], [id number] , [place]. tel:[phone] Office/Outpat ient Visit,[facility], [address], [place], [id number] , [place] [phone] [facility] - [place] LumbagoAcquired spondylolisthesis 5 Maryuriguerita Matt. [facility], [address], [address], [place], [place], [id number] , [place]. tel:[phone] Referring Provider: Brian Rodriguez, [facility] [address], [address], [place], [address] . tel:[phone] Family History Family Member Type Diagnosis Age At Onset No Information Payers Payer name Insurance type Covered alliance party ID Authorsilvia castro(s) [facility] [id number] [facility] [id number] Social History Type Description Quantity Date Captured [...]
--- NOTE | 2024-01-01 15:00 | XR_ITS ---
Patient: IRAIDA PISANO Facility:?[facility] Patient ID:?[id number] Site Patient ID:?[id number]. Site :?[id number] Study:?DEXA-Bone Density -01/01/2024 4:03:53 PM Ordering Physician:MALCOLM Final Report: DXA BONE MINERAL DENSITY STUDY Reason for exam: Screening for osteoporosis. Current height (in): 64.0. Weight (lb): 250.0. Menopause age: 60. Ethnicity: White. 1. Have you had a previous hip or vertebral fracture? No. 2. Have you had any fractures during your adult life which did not result from significant trauma (e.g., auto accident)? No. 3. Did either of your parents have a hip fracture? No. 4. Do you smoke? No. 5. Have you ever taken Glucocorticoids? No. 6. Do you have rheumatoid arthritis? No. 7. Do you have secondary osteoporosis? No. 8. Do you drink 3 or more alcoholic drinks per day? No. 9. Are you being treated for osteoporosis? No. 10. Have you ever taken any of the following medications: Actonel, Evista, Fosamax, Miacalcin, Reclast, Boniva, Forteo, HRT (i.e. estrogen/hormone therapy), Protelos, Prolia, Vitamin D, Calcium, other ? please specify. ANSWER: No. 11. Do you have any of the following medical conditions: Anorexia or bulimia, asthma or emphysema, end stage renal disease, hyperparathyroidism, any seizure disorders, cancer, inflammatory bowel diseases, hysterectomy, other ? please specify. ANSWER: No. 12. What was your maximum height (inches)? 64. 13. Do you perform weight bearing exercise regularly? No. 14. Do you regularly consume dairy products? Yes. 15. Do you drink caffeinated beverages? Yes. 16. At what age did your period start? 15. 17. Are you premenopausal? No. 18. How many full term pregnancies have you had? 2. 19. Have you ever missed your period for more than 6 months in a row (not including or menopause)? No. TECHNIQUE: Bone mineral density study was performed using the [employer]. FINDINGS: The results of the study expressed as bone mineral density (BMD) are as follows: Lumbar spine L1 to L3: BMD: 0.920 g/cm2. T-score: -0.9. Z-score: 1.0. Neck Left: BMD: 0.616 g/cm2. T-score: -2.1. Z-score: -0.4. Right: BMD: 0.638 g/cm2. T-score: -1.9. Z-score: -0.3. Total Left: BMD: 0.839 g/cm2. T-score: -0.8. Z-score: 0.5. Right: BMD: 0.870 g/cm2. T-score: -0.6. Z-score: 0.8. IMPRESSION: Osteopenia. *Comparison exams done prior to 02/2020 were performed on different unit, [facility]. COMPARISON: Compared with scan of 11/23/2021, the bone mineral density has decreased by 1.5 percent at the spine and increased by 1.4 percent at the hip. FRAX 10-year Fracture Risk Major Osteoporotic Fracture: 9.8 percent Hip Fracture: 1.5 percent Reported Risk Factors: [place] () Neck BMD=0.616, BMI=42.9 Serg Franco M.D. Diagnostic Radiologist [email or web address] LOUISE/prem / be/Dictated by: Serg Franco MD @ 01/02/2024 8:21:00 AM Signed by:?Serg Franco MD @01/03/2024 11:26:47 AM (Electronic Signature)
== END 2024-01-01 14:21 | disposition home or self-care (01) ==
LOC: RAD 14:21
PROVIDERS: PCP Physician Assistant Medical; Visit Provider Physician Assistant Medical
DX: Z13.820 Encounter for screening for osteoporosis (principal); M85.88 Other specified disorders of bone density and structure, other site; Z78.0 Asymptomatic menopausal state
CPT/HCPCS: 77080

== ENCOUNTER 2024-05-08 13:07 | Outpatient (CLI) | payer OTHER, MEDICARE, SELFPAY ==
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
--- OUTSIDE RECORDS SUMMARY | 2024-05-08 13:14 | XMS_ITS ---
Author Organization [facility] Address [address] [place] [address] Care Team Providers Care Park Recreation Manager Name Role Phone Unavailable Unavailable Unavailable Surgery Details Not on file Complications Check Surgery Details section. Procedure Estimated Blood Loss Check Surgery Details section. Procedure Findings Check Surgery Details section. Procedure Specimens Taken Check Surgery Details section.
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
--- OUTSIDE RECORDS SUMMARY | 2024-05-08 13:14 | XMS_ITS | Clinical Summary ---
Author Organization [facility] Address [address] [place] [address] Care Team Providers Care Pressroom Worker Name Role Phone Ira Quinonez P.A.-C. Primary Care Provider [phone] Source Comments Patient records contain information from all sites at [facility]. For routine questions regarding patient records, call [phone] during business hours, M-F 8:00 AM - 5:00 PM Central Time. Record requests for emergency care only can be directed to [phone] at any time.[facility] Allergies Active Allergy Reactions Criticality Noted Date Comments Lisinopril Cough 11/22/2017 Medications Medication Sig Dispensed Refills Start Date End Date Status aspirin (LO-DOSE ASPIRIN) [address] tablet Take 1 tablet by mouth daily. 05/01/2010 Active atenolol (for_TENORMIN) 50 mg tablet Take 1 tablet by mouth daily. 06/29/2016 Active multivitamin tablet Take by mouth daily. 05/01/2010 Active rosuvastatin (for_CRESTOR) 20 mg tablet Take 20 mg by mouth daily. Active chlorthalidone (for_HYGROTEN) 50 mg tablet Take 50 mg by mouth daily. Active FLUoxetine (for_PROzac) 40 mg capsule Take 1 capsule (40 mg total) by mouth daily. 90 capsule 3 08/06/2017 Active levothyroxine (for_SYNTHROID, LEVOTHROID) 112 mcg tablet Take 1 tablet (112 mcg total) by mouth daily. 90 tablet 3 08/06/2017 Active ilpxtrpz-uuinli-XG -thonzonium (CORTISPORIN-TC) 3.3-3-10-0.5 mg/mL drops,suspension Administer 5 [...] daily. Appt due please 90 tablet 08/11/2018 Active irbesartan (AVAPRO) 150 mg tablet Take 150 mg by mouth daily. Active spironolactone (ALDACTONE) 25 mg tablet Take 25 mg by mouth daily. Active melatonin 1 mg tablet Take 10 mg by mouth at bedtime. Active ferrous sulfate 325 mg (65 mg iron) tablet Take 325 mg by mouth daily. Active nystatin (NYSTOP) 100,000 unit/gram powder Apply 1 application topically 2 (two) times a day. PRN Active clobetasoL (TEMOVATE) 0.05 % cream Apply 1 application topically as needed. PRN Active triamcinolone (KENALOG) 0.5 % cream Apply 1 application topically as needed. 06/01/2020 Active metFORMIN XR (GLUCOPHAGE-XR) 500 mg 24 hr tablet 07/15/2023 Active Active Problems Problem Noted Date [...] Female Male 09/07/2009 Hypertension Essential Primary 08/29/2009 Overview (01/29/2017): Hypertension Pure Hypercholesterolemia 08/29/2009 Overview (01/29/2017): Depression Anxiety Apnea Sleep Obstructive 08/29/2009 Rosacea 04/21/2007 Hyperlipidemia 04/21/2007 Depression Anxiety 04/21/2007 Encounters Date Type Department Care Team Description 04/15/2024 7:12 PM CDT - 04/15/2024 7:57 PM CDT Emergency [facility] [address] [place] [address] History Of Falling (Primary Dx) Discharge Disposition: Home or Self Care 02/11/2024 Orders Only [facility] Ira Quinonez, P.A.-C. Monitoring For Therapeutic Drug Therapy; Hypothyroidism from Last 3 Months Immunizations Name Administration [...] Name Status Comments Brother (Age 46) Cause [place] Father (Age 65) Cause [place] Father's Sister Alive Grandfather Stroke at early age Mother (Age 62) Cause [place] Social History Tobacco Use Types Packs/Day Years Used Date Smoking Tobacco: Former Smokeless Tobacco: Former Alcohol Use Standard Drinks/Week Comments Yes 7 (1 standard drink = 0.6 oz pur e alcohol) [facility] [employer] Answer Date Recorded In the past 12 months has e Bom[employer], gas, oil, or water [employer] threatened to shut off services in your [...] week 06/15/2021 How often do you attend [facility] or anabaptism services? More than 4 times per year 06/15/2021 Do you belong to any clubs o r organizations such as scientologist groups, unions, fraternal or athletic groups, or [...] 0 06/19/2021 [facility] - Occupational Stress Questionnaire Answer Date [...] your living situation today? I have a [facility] place to live 09/10/2023 Education Answer [...] PHQ-2) 09/09/2023 Fall Risk Screen (Annual) 09/09/2023 COVID-19 Vaccine (2022-10 4 season) 2023 06/26/2023, 03/06/2022, 08/18/2021, Additional history exists Lipid (Cholesterol) Screening 02/10/2024, 12/28/2016, 11/14/2016, Additional history exists Influenza Vaccine (#1) 2024 3, 07/16/2022, 08/18/2021, Additional history exists Colonoscopy 07/06/2024 07/06/2021, 05/10, 02/04/2015, Additional history exists Colorectal Cancer Surveillance 07/06/2024 DTaP,Tdap,and Td Vaccines (5 - Td or Tdap) 10/05/2029 10/05/2019, 04/28/2009, 04/28/2009, Additional history exists Hepatitis C Screening Completed 08/06/2017 Zoster Vaccines Completed 02/28/2021, 11/02/2020 Cervical Cancer Screening Discontinued 2020, 05/02/2020, 08/18/2018, Additional history exists Pneumococcal vaccine (65+ years) Completed 12/11/19 23, 11/13/2021 Procedures Procedure Name Priority Date/Time Associated Diagnosis Comments BI BREAST SCREENING BILATERAL WITH TOMOSYNTHESIS RAD - Routine (most inpatients and all outpatients) 10/31/2021 10:22 AM [employer] Screening Mammogram Breast Cancer GLUCOSE, FASTING, S/P Routine 08/06/2017 10:23 AM [employer] Screening Examination Diabetes Mellitus HCV AB SCRN W/REFLEX TO HCV PCR, S Routine 08/06/2017 10:23 AM [employer] Screening Test Laboratory LIPID PANEL, S Routine 12/28/2016 10:50 AM CDT THYROID-STIMULATING HORMONE-SENSITIVE (S-TSH) Routine 12/28/2016 10:50 AM CDT SODIUM, S/P Routine 06/29/2016 9:09 AM CDT POTASSIUM, S/P Routine 06/29/2016 9:09 AM CDT CREATININE WITH EGFR, S/P Routine 06/29/2016 9:09 AM CDT COLONOSCOPY Routine 01/24/2015 1:00 PM CDT PATHOLOGY LABOR RELATIONS MANAGER CYTOLOGY Routine 06/08/2014 12:00 AM CDT from Last 3 Months or Most Recently Relevant to Health Maintenance Results * BI Breast Screening Bilateral with Tomosynthesis (10/31/2021 10:22 AM [employer]) Anatomical Region Laterality Modality Breast, Breast Imaging RST L OS, Breast Imaging ARZ LOS, Breast Imaging FLA LOS Bilateral Mammography 10/31/2021 11:5 3 AM [employer] Impressions 10/31/2021 11:55 AM [employer] Negative. RECOMMENDATION: ??Annual Screening Mammogram ASSESSMENT: ??BI-RADS: 1: Negative. Narrative 10/31/2021 11:55 AM [employer] EXAM: ??BI BREAST SCREENING BILATERAL WITH TOMOSYNTHESIS Current study was evaluated with a Computer Aided Detection (CAD) system. INDICATION: ??Screening mammogram. COMPARISON: ??Prior exam(s) were available and reviewed for comparison. DENSITY: ??b. There are scattered areas of fibroglandular density. FINDINGS: ??No mammographic findings of malignancy. Procedure Note Arabella Ritter M.D. - 10/31/2021 EXAM: BI BREAST SCREENING BILATERAL WITH TOMOSYNTHESIS Current study was evaluated with a Computer Aided Detection (CAD) system. INDICATION: Screening mammogram. COMPARISON: Prior exam(s) were available and reviewed for comparison. DENSITY: b. There are scattered areas of fibroglandular density. FINDINGS: No mammographic findings of malignancy. IMPRESSION: Negative. RECOMMENDATION: Annual Screening Mammogram ASSESSMENT: BI-RADS: 1: Negative. Ira Quinonez P.A.-C. IMG BI PROCEDURES * HCV Ab Scrn w/Reflex to HCV PCR (08/06/2017 10:23 AM [employer]) HCV Ab Screen, S Negative Negative 08/07/2017 11:28 AM [employer] [facility] Comment:[id number] rat io is <1.00. Blood (Blood, Venous) 08/06/2017 10:23 AM [employer] 08/07/2017 6:31 AM [employer] Johnna Judd M.D. LAB MICROBIOLOGY - B LOOD ORDERABLES [facility] [address] [place] [address] * Glucose, Fasting (08/06/2017 10:23 AM [employer]) Glucose, Fasting, S 96 70 - 99 mg/dL 08/06/2017 12:52 PM [employer] [facility] Blood (Blood, Venous) 08/06/2017 10:23 AM [employer] 08/06/2017 10:26 AM [employer] Johnna Judd M.D. LAB BLOOD NON ADD-ON [facility] [address] [place] [address], [facility] * (ABNORMAL) Lipid Panel (12/28/2016 10:50 AM CDT) Cholesterol, Total 211(H) <=199 MGDL POWERCHART Comment: 2014 National Lipid Association recommendations for Total Cholesterol in adults ages 18 and up: Desirable <200 mg/dL Borderline high 200-239 mg/dL High 240 mg/dL 2014 National Lipid Association recommendations for Total Cholesterol in children ages 2 to 17. Acceptable <170 mg/dL Borderline High 170-199 mg/dL High 200 mg/dL HX HDL 45(L) >=50 MGDL POWERCHART Comment: 2014 National Lipid Association recommendations for HDL-C in adults ages 18 and up: Low <40 mg/dL (Men) Low <50 mg/dL (Women) 2014 National Lipid Association recommendations for HDL-C in children ages 2 to 17. Low <40 mg/dL Borderline Low 40-45 mg/dL Acceptable >45 mg/dL Triglycerides 276(H) <=149 MGDL POWERCHART Comment: 2014 National Lipid Association recommendations for Triglycerides in adults ages 18 and up: Normal <150 mg/dL Borderline High 150-199 mg/dL High 200-499 mg/dL Very High 500 mg/dL 2014 National Lipid Association recommendations for Triglycerides in children ages 2 to 9. Acceptable <75 mg/dL Borderline High 75-99 mg/dL High 100 mg/dL 2014 National Lipid Association recommendations for Triglycerides in children ages 10 to 17. Acceptable <90 mg/dL Borderline High 90-129 mg/dL High 130 mg/dL Trigs >400mg/dL: Triglycerides >400 mg/dL. Calculated LDL cholesterol is not valid. Non-HDL cholesterol may be used for risk assessment when triglycerides are >400mg/dL. Calculated LDL 111 <=129 MGDL POWERCHART Comment: 2014 National Lipid Association recommendations for LDL-C in adults ages 18 and up: Desirable <100 mg/dL Above desirable 100-129 mg/dL Borderline high 130-159 mg/dL High 160-189 mg/dL Very High 190 mg/dL 2014 National Lipid Association recommendations for LDL-C in children ages 2 to 17. Acceptable <110 mg/dL Borderline High 110-129mg/dL High 130 mg/dL LDL-C >190mg/dL: The markedly elevated LDL level is suggestive of a genetic condition such as familial hypercholesterolemia(FH) or familial defective apolipoprotein B-100 (FDB). Molecular genetic testing for FH and FDB is available through [facility]: FH/ADH Genetic Reflex Panel (test ADHP). Acquired (non-genetic) causes of markedly increased LDL cholesterol include cholestatic liver disease due to the presence of LpX. If a genetic form of hypercholesterolemia is suspected, family studies including biochemical testing for lipids (total cholesterol,triglycerides, LDL cholesterol and HDL cholesterol) are recommended. ??Please contact the laboratory at or the on-line test catalog at [facility] for information about how to order these tests or to speak with a genetic counselor. Further interpretation would require clinical information. Total Cholesterol/HDL Ratio 5.00 POWERCHART HXLDL/HDL 2 POWERCHART Blood 12/28/2016 10:5 0 AM CDT Johnna Judd M.D. LAB BLOOD ADD-ON Performing Organization Address City/[facility] Co de Phone Number POWERCHART * Thyroid-Stimulating Hormone-Sensitive (s-TSH) (12/28/2016 10:50 AM CDT) TSH (Thyrotropin) 4.07 0.27 - 4.20 MIUL POWERCHART Comment: Biotin has been identified by the forestry instructor as a potential interfering substance. Higher concentrations of biotin may be found in multivitamins, hair/nail supplements, and workout supplements. If the result does not match clinical observations, repeat testing after patient refrains from the use of supplements for at least 12 hours. Blood 12/28/2016 10:5 0 AM CDT Johnna Judd M.D. LAB BLOOD ADD-ON Performing Organization Address [facility] Co de Phone Number POWERCHART * Sodium (06/29/2016 9:09 AM CDT) Sodium, S 140 135 - 145 MMOLL POWERCHART Blood 06/29/2016 9:09 AM CDT Johnna Judd M.D. LAB BLOOD ADD-ON Performing Organization Address [facility] de Phone Number POWERCHART * Potassium (06/29/2016 9:09 AM CDT) Potassium, S 5.0 3.6 - 5.2 MMOLL POWERCHART Blood 06/29/2016 9:09 AM CDT Johnna Judd M.D. LAB BLOOD ADD-ON POWERCHART * Creatinine with eGFR (06/29/2016 9:09 AM CDT) Creatinine 0.88 0.60 - 1.10 MGDL POWERCHART HXeGFR (MDRD) >60 >=60 [id number] POWERCHART eGFR Black/ >60 >=60 [id number] POWERCHART Blood 06/29/2016 9:09 AM CDT Johnna Judd M.D. LAB BLOOD ADD-ON POWERCHART * Colonoscopy (01/24/2015 1:00 PM CDT) 01/24/2015 1:00 PM CDT Cesar Garcia M.D. GI PROCEDURE ORD ERABLES [facility] [address] [place] [address] * Pathology LABOR RELATIONS MANAGER Cytology (06/08/2014 12:00 AM CDT) 06/08/2014 Narrative [facility] - 06/17/2014 8:27 AM CDT [facility] in [address] [place], [place] ??[phone] Patient Name: MELIZA HO Collected: 06/08/2014 Address: [facility]/State/Zip: [address] [place] [address] ??[phone] Received: Reported: 06/09/2014 06/15/2014 Soc. Sec. #: ?/Age/Sex 1955 (Age: 58) ??F Physician(s): BERE GURROLA MD Copy To: ? [facility] CL ??[phone] [facility], ??[place] ??[address] CYTOPATHOLOGY LABOR RELATIONS MANAGER REPORT FINAL CYTOLOGIC DIAGNOSIS Pap Smear - ThinPrep: NEGATIVE FOR INTRAEPITHELIAL LESION OR MALIGNANCY ENDOCERVICAL CELLS/COMPONENT PRESENT. SATISFACTORY SPECIMEN FOR EVALUATION. Electronically Signed Out By 06/15/[address](ASCP) DL Delia CT(ASCP) The Pap test is a screening procedure and, as such, is subject to both false positive and false negative results as evidenced by published data. ??It is not a diagnostic test and results should be interpreted in the context of the patient's history and other clinical findings. ??Obtaining periodic Pap tests may help to minimize the consequences of any false negatives that may occur. Procedures/Addenda: HUMAN PAPILLOMA VIRUS TESTING (HPV) ? Date Ordered: ? 06/17/2014 ? Status: ??Signed Out Date Complete: ? 06/17/2014 ? By: ??PAZ Murray CT(ASCP) Date Reported: ? 06/17/2014 INTERPRETATION: Test: CervistaTM High Risk HPV Result: NEGATIVE FOR HIGH RISK HPV Specimen Description: ThinPrep? ? ? Pap Test PreservCyt Solution The FDA-approved Hologic CervistaTM HPV High Risk Test is an in vitro diagnostic test for the qualitative detection of DNA from 14 high-risk Human Papillomavirus (HPV) types (16, 18, 31, 33, 35, 39, 45, 51, 52, 56, 58, 59, 66, and 68) in cervical specimen using the Invader? ? ? chemistry, a signal amplification method for detection of specific nucleic acid sequences. Interpretation for patients with ASC-US cytology: Low likelihood of underlying high-grade CIN2-3 or cancer; results are not intended to prevent women from proceeding to colposcopy. Interpretation for patients with NILM cytology who are over 30 years old: Very low likelihood of underlying high-grade [place] or cancer; results do not preclude future HPV infection or cytologic abnormalities with underlying CIN2-3 or cancer. SPECIMEN(S) RECEIVED: Pap Smear - ThinPrep CLINICAL HISTORY: Date of Last PAP: 2010 Other Clinical Conditions: IUD in place HPV TYPING REQUESTED Nazia Snow M.D. LAB PAP COPATH ORDERABLES [facility] from Last 3 Months or Most Recently Relevant to Health Maintenance Advance Directives For more information, please contact: [phone] Documents on File Type Date Recorded Patient Art Teacher Expl anation Advance Directives 02/05/2012 12:00 AM Leg acy document. See document viewer. Care Teams Pressroom Worker Relationship Specialty Start Date End Date Ira Quinonez P.A.-C. [address] [place] [address] PCP - General 11/24/20
--- OUTSIDE RECORDS SUMMARY | 2024-05-08 13:14 | XMS_ITS | Referral Summary ---
Author Organization [facility] Address [address] [place] [address] Care Team Providers Care Community Health Advisor Name Role Phone Ira Quinonez-Edie Primary Care Provider [phone]- [phone] Source Comments Patient records contain information from all sites at [facility]. For routine questions regarding patient records, call [phone] during business hours, M-F 8:00 AM - 5:00 PM Central Time. Record requests for emergency care only can be directed to [phone] at any time.[facility] Encounters Date Type Department Care Team Description 04/15/2024 7:12 PM CDT - 04/15/2024 7:57 PM CDT Emergency [facility] [address] [place] [phone] History Of Falling (Primary Dx) Discharge Disposition: Home or Self Care 02/11/2024 Orders Only [facility] PCP [facility] Ira Quinonez, P.A.-C. Monitoring For Therapeutic Drug Therapy; Hypothyroidism from Last 3 Months Allergies Active Allergy [...] mouth daily. 90 tablet 3 08/06/2017 Active lotncqos-psrmwb-XV -thonzonium (CORTISPORIN-TC) 3.3-3-10-0.5 mg/mL drops,suspension Administer 5 [...] drink = 0.6 oz pur e alcohol) [facility] Utilities Answer Date Recorded In the past 12 months has e [employer], [employer], or water [employer] threatened to shut off services in your [...] often do you attend chur ch or pentecostalism services? More than 4 times per year 06/15/2021 Do you belong to any clubs o r organizations such as moravian groups, unions, fraternal or athletic groups, or [...] Answer Date Recorded PHQ-2 Score 0 06/19/2021 [facility] - Occupational [...] CDT Plan of Treatment Not on file Procedures Procedure Name Priority Date/Time Associated Diagnosis Comments BI BREAST SCREENING BILATERAL WITH TOMOSYNTHESIS RAD - Routine (most inpatients and all outpatients) 10/31/2021 10:22 AM HEATER INSTALLER Screening Mammogram Breast Cancer GLUCOSE, FASTING, S/P Routine 08/06/2017 10:23 AM HEATER INSTALLER Screening Examination Diabetes Mellitus HCV AB SCRN W/REFLEX TO HCV PCR, S Routine 08/06/2017 10:23 AM HEATER INSTALLER Screening Test Laboratory LIPID PANEL, S Routine 12/28/2016 10:50 AM CDT THYROID-STIMULATING HORMONE-SENSITIVE (S-TSH) Routine 12/28/2016 10:50 AM CDT SODIUM, S/P Routine 06/29/2016 9:09 AM CDT POTASSIUM, S/P Routine 06/29/2016 9:09 AM CDT CREATININE WITH EGFR, S/P Routine 06/29/2016 9:09 AM CDT COLONOSCOPY Routine 01/24/2015 1:00 PM CDT PATHOLOGY SPRAY MIXER CYTOLOGY Routine 06/08/2014 12:00 AM CDT from Last 3 Months or Most Recently Relevant to Health Maintenance Results * BI Breast Screening Bilateral with Tomosynthesis (10/31/2021 10:22 AM HEATER INSTALLER) Anatomical Region Laterality Modality Breast, Breast Imaging RST L OS, Breast Imaging ARZ LOS, Breast Imaging FLA LOS Bilateral Mammography 10/31/2021 11:5 3 AM HEATER INSTALLER Impressions 10/31/2021 11:55 AM HEATER INSTALLER Negative. RECOMMENDATION: ??Annual Screening Mammogram ASSESSMENT: ??BI-RADS: 1: Negative. Narrative 10/31/2021 11:55 AM HEATER INSTALLER EXAM: ??BI BREAST SCREENING BILATERAL WITH TOMOSYNTHESIS [...] w/Reflex to HCV PCR (08/06/2017 10:23 AM HEATER INSTALLER) HCV Ab Screen, S Negative Negative 08/07/2017 11:28 AM HEATER INSTALLER [facility] Comment:Kfkiiz-sz-zqojoj rat io is <1.00. Blood (Blood, Venous) 08/06/2017 10:23 AM HEATER INSTALLER 08/07/2017 6:31 AM HEATER INSTALLER Johnna Judd M.D. LAB MICROBIOLOGY - B LOOD ORDERABLES [facility] [address] [place] [address] * Glucose, Fasting (08/06/2017 10:23 AM HEATER INSTALLER) Pathologist [facility] Glucose, Fasting, S 96 70 - 99 mg/dL 08/06/2017 12:52 PM HEATER INSTALLER [facility] Blood (Blood, Venous) 08/06/2017 10:23 AM HEATER INSTALLER 08/06/2017 10:26 AM HEATER INSTALLER Johnna Judd M.D. LAB BLOOD NON ADD-ON [facility] [address] [place] [address], [facility] * (ABNORMAL) Lipid Panel (12/28/2016 10:50 AM [...] for FH and FDB is available through [employer]: FH/ADH Genetic Reflex Panel (test ADHP). Acquired (non-genetic) causes of markedly increased LDL cholesterol include cholestatic liver disease due to the presence of LpX. If a genetic form of hypercholesterolemia is suspected, family studies including biochemical testing for lipids (total cholesterol,triglycerides, LDL cholesterol and HDL cholesterol) are recommended. ??Please contact the laboratory at or the on-line test catalog at [employer] for information about how to order these tests or to speak with a genetic counselor. Further interpretation would require clinical information. Total Cholesterol/HDL Ratio 5.00 POWERCHART HXLDL/HDL 2 POWERCHART Blood 12/28/2016 10:5 0 AM CDT Johnna Judd M.D. LAB BLOOD ADD-ON Performing Organization Address [facility] de Phone Number POWERCHART * Thyroid-Stimulating Hormone-Sensitive (s-TSH) (12/28/2016 10:50 AM CDT) TSH (Thyrotropin) 4.07 0.27 - 4.20 [facility] POWERCHART Comment: Biotin has been identified by the tanbark laborer as a potential interfering substance. Higher concentrations of biotin may be found in multivitamins, hair/nail supplements, and workout supplements. If the result does not match clinical observations, repeat testing after patient refrains from the use of supplements for at least 12 hours. Blood 12/28/2016 10:5 0 AM CDT Johnna Judd M.D. LAB BLOOD ADD-ON Performing Organization Address [facility] de Phone Number POWERCHART * Sodium (06/29/2016 9:09 AM CDT) Sodium, S 140 135 - 145 MMOLL POWERCHART Blood 06/29/2016 9:09 AM CDT Johnna Judd M.D. LAB BLOOD ADD-ON Performing Organization Address [facility] de Phone Number POWERCHART * Potassium (06/29/2016 9:09 AM CDT) Potassium, S 5.0 3.6 - 5.2 MMOLL POWERCHART Blood 06/29/2016 9:09 AM CDT Johnna Judd M.D. LAB BLOOD ADD-ON Performing Organization Address [facility] de Phone Number POWERCHART * Creatinine with eGFR (06/29/2016 9:09 AM CDT) Creatinine 0.88 0.60 - 1.10 MGDL POWERCHART HXeGFR (MDRD) >60 >=60 [id number] POWERCHART eGFR Black/ >60 >=60 [id number] POWERCHART Blood 06/29/2016 9:09 AM CDT Johnna Judd M.D. LAB BLOOD ADD-ON POWERCHART * Colonoscopy (01/24/2015 1:00 PM CDT) 01/24/2015 1:00 PM CDT Cesar Garcia M.D. GI PROCEDURE ORD ERABLES [facility] [address] [place] [address] * Pathology SPRAY MIXER Cytology (06/08/2014 12:00 AM CDT) 06/08/2014 Narrative [facility] LAB - 06/17/2014 8:27 AM CDT [facility] [place] [address] [facility] [address] [place] [address] ??[phone] Patient Name: MELIZA HO Collected: 06/08/2014 Address: City/State/Zip: [address] [place] [address] ??[id number] Received: Reported: 06/09/2014 06/15/2014 Soc. Sec. #: ?/Age/Sex 1955 (Age: 58) ??F Physician(s): BERE GURROLA MD Copy To: ? [facility] ??[id number] [address] [facility], ??[place] ??[address] CYTOPATHOLOGY SPRAY MIXER REPORT FINAL CYTOLOGIC DIAGNOSIS Pap Smear - ThinPrep: NEGATIVE FOR INTRAEPITHELIAL LESION OR MALIGNANCY ENDOCERVICAL CELLS/COMPONENT PRESENT. SATISFACTORY SPECIMEN FOR EVALUATION. Electronically Signed Out By amb/06/15/[address](ASCP) DL Streich CT(ASCP) The Pap test is a screening [...] Out Date Complete: ? 06/17/2014 ? By: ??RJ Trevor CT(ASCP) Date Reported: ? 06/17/2014 INTERPRETATION: Test: CervistaTM High Risk HPV Result: NEGATIVE FOR HIGH RISK HPV Specimen Description: ThinPrep? ? ? Pap Test PreservCyt Solution The FDA-approved [employer] CervistaTM HPV High Risk Test is an [...] Nazia Snow M.D. LAB PAP COPATH ORDERABLES [facility] from Last 3 Months or Most Recently Relevant to Health Maintenance Advance Directives For more information, please contact: [phone] Documents on File Type Date Recorded Patient Civil Litigation Attorney Expl anation Advance Directives 02/05/2012 12:00 AM Leg acy document. See document viewer. Care Teams Community Health Advisor Relationship Specialty Start Date End Date Ira Quinonez P.A.-C. [address] [place] [phone] PCP - General 11/24/20
--- OUTSIDE RECORDS SUMMARY | 2024-05-08 13:15 | XMS_ITS | Encounter Summary ---
Author Organization [facility] Address [address] [place] [address] Care Team Providers Care Graphics Specialist Name Role Phone Ira Quinonez P.A.-CJames Primary Care Provider +1- [phone] Encounter Details Date Type Department Care Team (Late st Contact Info) Description 02/11/2024 Orders Only [facility] Ira Quinonez, P.A.-C. [address] [place] [phone] Monitoring For Therapeutic Drug Therapy; Hypothyroidism Social History Tobacco Use Types Packs/Day Years Used Date Smoking Tobacco: Former Smokeless Tobacco: Former Alcohol Use Standard Drinks/Week Comments Yes 7 (1 standard drink = 0.6 oz pur e alcohol) [facility] Utilities Answer Date Recorded In the past 12 months has [facility] [employer], gas, oil, or water [employer] threatened to shut off services in your [...] How often do you attend chur or baptism services? More than 4 times per year 06/15/2021 Do you belong to any clubs o r organizations such as lutheran groups, unions, fraternal or athletic groups, or [...] your living situation today? I have a [facility] to live 09/10/2023 Education Answer Date [...] Type Priority Associated Diagnoses Orde r Schedule Basic Metabolic Panel Lab Routine Monitoring For Therapeutic Drug Therapy Expected: 02/25/2024, Expires: 08/09/2024 S-TSH (Thyroid-Stimulating Hormone - Sensitive) Lab Routine Hypothyroidism Expected: 02/25/2024, Expires: 08/09/2024 documented as of this encounter Visit Diagnoses Diagnosis Monitoring For Therapeutic Drug Therapy Hypothyroidism documented in this encounter Additional Health Concerns Assessment Noted Time PHQ-9 Depression Total Score: 4 08/06/20 17 8:[address] documented as of this encounter Care Teams Graphics Specialist Relationship Specialty Start Date End Date Ira Quinonez P.A.-C. [address] [place] [phone] PCP - General 11/24/20 documented as of this encounter
--- OUTSIDE RECORDS SUMMARY | 2024-05-08 13:15 | XMS_ITS | Encounter Summary ---
Author Organization [facility] Address [address] [place] [address] Care Team Providers Care Wildlife Biology Internship Name Role Phone Ira Quinonez P.A.-C. Primary Care Provider +1- [phone] Encounter Details Date Type Department Care Team (Late st Contact Info) Description 06/07/2017 Historical Ophthalmology [facility] Dae Sánchez M.D. [address] [place] [phone] Social History Tobacco Use Types Packs/Day Years [...] new Rx. CDM Reports - EYEGEN Id: [id number] Status: Fnl documented in this encounter Plan [...] documented as of this encounter Care Teams Wildlife Biology Internship Relationship Specialty Start Date End Date Ira Quinonez P.A.-C. [address] [place] [phone] PCP - General 11/24/20 documented as of this encounter
--- OUTSIDE RECORDS SUMMARY | 2024-05-08 13:15 | XMS_ITS | Encounter Summary ---
Author Organization [facility] Address [address] [place] [address] Care Team Providers Care Internal Affairs Commander Name Role Phone Ira Quinonez P.A.-C. Primary Care Provider +1- [phone] Encounter Details Date Type Department Care Team (Late st Contact Info) Description 05/17/2017 Historical Ophthalmology [facility] Dae Sánchez M.D. [address] [place] [phone] Social History Tobacco Use Types Packs/Day Years [...] CPAP related. CDM Reports - EYEGEN Id: [id number] Status: Fnl documented in this encounter Plan [...] documented as of this encounter Care Teams Internal Affairs Commander Relationship Specialty Start Date End Date Ira Quinonez P.A.-C. [address] [place] [phone] PCP - General 11/24/20 documented as of this encounter
--- NOTE | 2024-05-08 13:40 | CRLHL7_ITS ---
For Patients: As a result of the Century Cures Act, medical imaging exams and procedure reports are released immediately into your electronic medical record. You may view this report before your referring provider. If you have questions, please contact your health care provider. BILATERAL SCREENING MAMMOGRAM WITH COMPUTER-AIDED DETECTION AND TOMOSYNTHESIS TECHNIQUE: CC and MLO views were obtained. These mammographic images have been obtained using full-field digital technique. These mammographic images were interpreted with the benefit of computer-aided detection. Breast Tomosynthesis was used in this interpretation. COMPARISON FILM: 02/07/23, 10/11/21, 11/01/20. FINDINGS: There are scattered areas of fibroglandular density IMPRESSION: There is no radiographic evidence for malignancy. ASSESSMENT: BI-RADS Category 1: Negative RECOMMENDATION: Routine screening mammogram in 1 year. A lay language report of this examination will be provided to the patient. Serg Franco M.D. Diagnostic Radiologist [email or web address] FREDERICK/Dictated by: Serg Franco MD @ 05/08/2024 2:32:00 PM (Electronically Signed)
== END 2024-05-08 13:08 | disposition home or self-care (01) ==
LOC: MAMMO 13:11
PROVIDERS: PCP Physician Assistant Medical; Visit Provider Physician Assistant Medical
DX: Z12.31 Encounter for screening mammogram for malignant neoplasm of breast (principal)
CPT/HCPCS: 77063; 77067

== ENCOUNTER 2024-09-30 09:43 | Outpatient (CLI) | payer OTHER, SELFPAY ==
[2024-09-30 15:46] LABS: Chlamydia DNA Amplified* NOT DETECTED (No Detected); GC DNA Amplified* NOT DETECTED (No Detected)
[2024-10-02 06:04] LABS: HPV Source Cervix; HPV, High Risk by TMA Not Detected
[2024-10-12 15:34] LABS: Pap Test Reviewed by Path Done
== END 2024-09-30 09:44 | disposition home or self-care (01) ==
PROVIDERS: PCP Physician Assistant Medical; Visit Provider Physician Assistant Medical
DX: N76.0 Acute vaginitis (principal); N88.9 Noninflammatory disorder of cervix uteri, unspecified
CPT/HCPCS: 87491; 87591; 87624; 87625; 88141; 88142

== ENCOUNTER 2024-10-08 06:15 | Outpatient (CLI) | payer OTHER, SELFPAY ==
--- NOTE | 2024-10-08 08:14 | W.ANESCHARGE ---
Anesthesia Charges Start Date/Time Anesthesia Start Date: 10/08/24 Anesthesia Start Time: 07:17 Stop Date/Time Anesthesia Stop Date: 10/08/24 Anesthesia Stop Time: 08:11 Coding CPT Codes CPT Codes: ANES UPR LWR GI NDSC PX - 13909 ([id number]) P3 - PATIENT W/SEVERE SYS DISEASE, QX - ELECTRICAL DESIGN TECHNICIAN SVC W/ MD MED DIRECTION, QK - MEDICAL OPERATIONS SUPERVISOR 2-4 CNCRNT ANES PROC
--- NOTE | 2024-10-08 09:11 | PM.GSPN ---
Subjective Subjective Date Seen: 10/08/24 Interval history: During patient's colonoscopy patient developed atrial fibrillation. She does not have history of atrial fibrillation. Her blood pressure was stable and her heart rate was in the low 100s. Post colonoscopy an EKG was obtained that showed irregular rhythm. Patient denied any chest pain or shortness of breath. She was thought to be safe to discharge home with close follow-up with Cardiology who she already sees. Patient will take aspirin. If she develops shortness of breath, racing heart rate, or chest pain, she was encouraged to go straight to the emergency room.
--- NOTE | 2024-10-08 09:58 | W.ANESCHARGE ---
Anesthesia Charges Start Date/Time Anesthesia Start Date: 10/08/24 Anesthesia Start Time: 07:17 Stop Date/Time Anesthesia Stop Date: 10/08/24 Anesthesia Stop Time: 08:11 Coding CPT Codes CPT Codes: ANES UPR LWR GI NDSC PX - 09086 ([id number]) QK - MILLINERY DEPARTMENT MANAGER 2-4 CNCRNT ANES PROC, QX - CYBER SYSTEMS ADMINISTRATOR SVC W/ MED DIRECTION, P3 - PATIENT W/SEVERE SYS DISEASE
== END 2024-10-08 06:16 | disposition home or self-care (01) ==
LOC: OP CLINIC 06:16
PROVIDERS: PCP Physician Assistant Medical; Visit Provider Surgery
DX: Z12.11 Encounter for screening for malignant neoplasm of colon (principal); D12.3 Benign neoplasm of transverse colon; D12.8 Benign neoplasm of rectum; K64.4 Residual hemorrhoidal skin tags; Z86.0100 Personal history of colon polyps, unspecified; K21.00 Gastro-esophageal reflux disease with esophagitis, without bleeding; K44.9 Diaphragmatic hernia without obstruction or gangrene; E03.9 Hypothyroidism, unspecified; E87.1 Hypo-osmolality and hyponatremia; R53.83 Other fatigue
CPT/HCPCS: 00813; 36415; 43239; 45385; 80048; 84439; 84443; 84484; 85025; 88305; 88341; 88342; 93005; 94761; 99284; J2704; J3010; J7030

== ENCOUNTER 2024-10-08 09:14 | Emergency (ER) | payer OTHER, MEDICARE, SELFPAY ==
[2024-10-08] VITALS (19 sets, daily range): BP systolic 126–136; BP diastolic 66–90; PULSE 70–123; RESP 18–19; TEMP 36.1; O2SAT 93–97; BMI 54.5
--- NOTE | 2024-10-08 09:27 | ED.GENADULT ---
HPI - General Adult General Date Seen: 10/08/24 Chief complaint: Arrhythmia/Palpitations Stated complaint: Afib Time Seen by Provider: 10/08/24 09:27 History of Present Illness HPI narrative: 69-year-old female is referred to the ER today from the outpatient colonoscopy center here in [place]. She apparently came in this morning for a screening colonoscopy. When she arrived she was in sinus rhythm and then during the colonoscopy procedure, while she was under sedation, she went into AFib on the monitor. Rate is been generally around 100. No tachycardias up to 150. Upon awakening she is asymptomatic. She does not feel the AFib. She is not short of breath. No dizziness. She has no history of AFib. This is a new diagnosis for her. The anesthesiologist who brought over indicates though that since she is asymptomatic we do not really know if it is new onset or not. Past medical history includes hypothyroidism, GERD, anemia, coronary artery arterial sclerosis, hypertension, prediabetes, elevated BMI. Med list includes metformin, irbesartan, levothyroxine, atenolol 50 mg daily, chlorthalidone 50 mg daily, aspirin 81 mg daily Related Data Home Medications ?Medication ?Instructions ?Recorded ?Confirmed aspirin 81 mg tablet,delayed mg PO DAILY 12/10/22 09/30/24 release atenolol 50 mg tablet mg PO DAILY 12/10/22 09/30/24 chlorthalidone 50 mg tablet mg PO DAILY 12/10/22 09/30/24 irbesartan 300 mg tablet 300 mg PO DAILY 12/10/22 09/30/24 rosuvastatin 20 mg tablet 20 mg PO QDAY 12/10/22 09/30/24 spironolactone 25 mg tablet mg PO DAILY 12/10/22 09/30/24 multivitamin PO 03/04/23 09/30/24 Previous Rx's ?Medication ?Instructions ?Recorded fluoxetine 40 mg capsule 40 mg PO DAILY #90 caps 12/19/23 levothyroxine 150 mcg tablet 150 mcg PO QDAY #90 tabs 12/19/23 (Synthroid) meclizine 25 mg tablet 25 mg PO BID-TID PRN motion 12/19/23 sickness #20 tabs omeprazole 20 mg capsule,delayed 20 mg PO DAILY #90 caps 12/19/23 release scopolamine base 1 mg over 3 days 1 patch transdermal Q3D PRN motion 12/19/23 transdermal patch sickness #4 ea metformin 500 mg tablet,extended 1,000 mg (2 x 500 mg) PO QDAY #180 12/26/23 release 24 hr tabs peg 3350-electrolytes 236 240 ml PO Q10M #4,000 mL 07/30/24 gram-22.74 gram-6.74 gram-5.86 gram solution (Golytely) apixaban 5 mg tablet (Eliquis) 5 mg PO BID #60 tabs 10/08/24 Allergies Allergy/AdvReac Type Severity Reaction Status Date / Time lisinopril AdvReac Intermediate Cough Verified 09/30/24 09:29 [facility] Medical History Hx of colonic polyp ?Z86.010 - Personal history of colonic polyps (ICD-10) Postmenopausal bleeding ?N95.0 - Postmenopausal bleeding (ICD-10) Hiatal hernia ?K44.9 - Diaphragmatic hernia without obstruction or gangrene (ICD-10) Frequent urinary tract infections ?N39.0 - Urinary tract infection, site not specified (ICD-10) Cardiomegaly ?I51.7 - Cardiomegaly (ICD-10) Surgical History History of total bilateral knee replacement ?Z96.653 - Presence of artificial knee joint, bilateral (ICD-10) History of bladder suspension procedure ?Z98.890 - Other specified postprocedural states (ICD-10) ?Z87.448 - Personal history of other diseases of urinary system (ICD-10) Social History Narrative: . Two adult children Former smoker ( Quit 1987) Alcohol-1 drink per week Retired Enjoys biking and water aerobics, traveling Smoking Status: Former smoker Non-prescribed substance use: denies use Exam Narrative: Exam Narrative: Constitutional: Appears well-developed and well-nourished. Alert. Conversant. Non toxic. HENT: Head: Atraumatic. Nose: Nose normal. Mouth/Throat: Oral mucosa is clear and moist. no trismus. Pharynx normal. Tonsils symmetric. No tonsillar enlargement, erythema, or exudate. Eyes: Conjunctivae normal. EOM normal. Pupils equal, round, and reactive to light. No scleral icterus. Neck: Normal range of motion. Neck supple. No tracheal deviation present. Cardiovascular: Irregularly irregular rhythm. Heart rate ranging about 100-110 on the monitor. AFib. No gallop. No friction rub. No murmur heard. Symmetric radial artery pulses Pulmonary/Chest: Effort normal. No stridor. No respiratory distress. No wheezes. No rales. No rhonchi . No tenderness. Abdominal: Soft.No distension. No mass. No tenderness. No rebound. No guarding. Musculoskeletal: RUE: Normal range of motion. No tenderness. No deformity LUE: Normal range of motion. No tenderness. No deformity RLE: Normal range of motion. No edema. No tenderness. No deformity LLE: Normal range of motion. No edema. No tenderness. No deformity Lymph: No cervical adenopathy. Neurological: Alert and oriented to person, place, and time. Normal strength. CN II-VII intact. No sensory deficit. GCS eye subscore is 4. GCS verbal subscore is 5. GCS motor subscore is 6. Normal coordination Skin: Skin is warm and dry. No rash noted. No pallor. Normal capillary refill. Psychiatric: Normal mood. Normal affect. Const: Vital Signs, click to edit/add: Vital Signs - 24 hr 10/08/24 09:15 10/08/24 09:21 10/08/24 09:32 Temperature 97 F L Pulse Rate 109 H 116 H Pulse Rate [Pulse Oximeter] 105 H Respiratory Rate 18 Blood Pressure Blood Pressure [Ri t Upper Arm] 133/88 Pulse Oximetry 94 94 95 Oxygen Delivery Me thod Room Air 10/08/24 09:33 10/08/24 09:38 10/08/24 09:45 Temperature Pulse Rate 114 H 115 H Pulse Rate [Pulse Oximeter] Respiratory Rate 18 Blood Pressure 126/81 Blood Pressure [Ri ght Upper Arm] Pulse Oximetry 97 95 95 Oxygen Delivery Me thod 10/08/24 10:00 10/08/24 10:03 10/08/24 10:15 Temperature Pulse Rate 109 H 116 H 109 H Pulse Rate [Pulse Oximeter] Respiratory Rate Blood Pressure 132/85 Blood Pressure [Ri t Upper Arm] Pulse Oximetry 94 95 95 Oxygen Delivery Me thod 10/08/24 10:30 10/08/24 10:32 10/08/24 10:45 Temperature Pulse Rate 104 H 111 H 112 H Pulse Rate [Pulse Oximeter] Respiratory Rate Blood Pressure 134/85 Blood Pressure [Ri ght Upper Arm] Pulse Oximetry 94 95 93 Oxygen Delivery Me thod 10/08/24 11:13 10/08/24 11:14 10/08/24 11:15 Temperature Pulse Rate 123 H 123 H 74 Pulse Rate [Pulse Oximeter] Respiratory Rate 18 Blood Pressure 136/90 H Blood Pressure [Ri ght Upper Arm] Pulse Oximetry 95 94 95 Oxygen Delivery Me thod 10/08/24 11:30 10/08/24 11:33 10/08/24 11:45 Temperature Pulse Rate 74 73 70 Pulse Rate [Pulse Oximeter] Respiratory Rate Blood Pressure 133/66 Blood Pressure [Ri ght Upper Arm] Pulse Oximetry 95 95 95 Oxygen Delivery Me thod 10/08/24 11:59 Temperature Pulse Rate Pulse Rate [Pulse Oximeter] 70 Respiratory Rate 19 Blood Pressure Blood Pressure [Ri ght Upper Arm] Pulse Oximetry 93 Oxygen Delivery Me thod Room Air Course Course ED Course: Recheck-I came active for the patient of her lab tests her heart rate had changed. She is not consistently at 72 beats per minute. A lot of artifact on her monitor baseline obscures potential P waves breast suspect she did convert to sinus rhythm. Repeat EKG just shows sinus rhythm. Vital Signs Vital signs: Initial Vital Signs Respiratory Effort Normal, Spontaneous, Non-Labored 10/08/24 09:14 Respiratory Depth Normal 10/08/24 09:14 Vital Signs Temperature 97 F L 10/08/24 09:15 Pulse Rate 105 H 10/08/24 09:15 Respiratory Rate 18 10/08/24 09:15 Blood Pressure 133/88 10/08/24 09:15 Pulse Oximetry 94 10/08/24 09:15 Oxygen Delivery Method Room Air 10/08/24 09:15 Temperature 97 F L 10/08/24 09:15 Pulse Rate 70 10/08/24 11:59 Respiratory Rate 19 10/08/24 11:59 Blood Pressure 133/66 10/08/24 11:33 Pulse Oximetry 93 10/08/24 11:59 Oxygen Delivery Method Room Air 10/08/24 11:59 Medications Administered Medications: Discontinued Medications Generic Name Dose Route Start Last Admin Trade Name Laxmi PRN Reason Stop Dose Admin Sodium Chloride 500 mls @ 500 mls/hr 10/08/24 10:09 10/08/24 11:18 0.9 % Sodium Chloride 500 Ml IV 10/08/24 11:08 Infused .Q1H ONE Infusion Medical Decision Making MDM Narrative Medical decision making narrative: Very pleasant 69-year-old female who came to the hospital today for outpatient endoscopy/colonoscopy. She converted from sinus rhythm to atrial fibrillation during her procedure. Upon awakening she was asymptomatic. This is a new diagnosis of AFib for her, but since she is having no symptoms, it is impossible to know if she has had lately or if this is truly new onset. Fortunately she is rate controlled ranging around 100 beats per minute. Does not require diltiazem for immediate rate control. Consider cardioversion, but risk of stroke if this is not a new onset AFib. Therefore would hold off for now. Chads Vasc score is 4. Laboratory workup here in the ER shows no evidence for thyrotoxicosis, hypokalemia, cardiac ischemia, or other specific underlying cause for AFib. I made consult with Cardiology through lucia Edward( the patient's primary park keeper is Dr. Urbina through [facility]). They agree with me that discharge home with Eliquis for stroke prophylaxis would be the safest course with the plan for to follow up with clinic in the next 2-4 weeks. If she has persistently AFib they could cardiovert her after appropriate. Of therapeutic anticoagulation. After that phone call she converted back to sinus rhythm spontaneously here in the ER. This point safe for discharge home. Will start her on Eliquis. Continue her other meds including atenolol which may help her rate controlled she reverts to AFib. She will return to the ER if she does develop any symptoms or if she has any other concerns. She and her will call the cardiology clinic today to see if they can move up her upcoming appointment. Lab Data Labs: Lab Results 10/08/24 10/08/24 Range/Units 09:30 09:40 WBC 6.54 (4.50-11.00) K/uL RBC 4.11 (4.00-5.20) m/uL Hgb 13.0 (12.0-16.0) gm/dL Hct 39.5 (33.0-51.0) % MCV 96 (80-100) fL MCH 32 (26-34) pg MCHC 33 (32-36) gm/dL RDW Coeff of Alejandro 12.0 (11.5-15.5) % Plt Count 228 (140-440) K/uL Neut % (Auto) 68.4 (42.0-72.0) % Lymph % (Auto) 17.6 L (20-44) % Garden % (Auto) 7.8 (0.0-11.0) % Eos % (Auto) 5.2 (0.0-7.0) % Baso % (Auto) 0.8 (0.0-3.0) % Neut # (Auto) 4.48 (1.7-7.0) K/uL Lymph # (Auto) 1.20 (0.90-2.90) K/uL Garden # (Auto) 0.50 (0.00-0.90) K/UL Eos # (Auto) 0.34 (0.00-0.50) K/uL Baso # (Auto) 0.05 (0.00-0.30) K/uL Abs Immat Gran (auto) 0.01 (0.00-0.30) K/uL Imm/Tot Granulo (auto) 0.2 % Sodium 132 L (135-149) mmol/L Potassium 4.1 (3.6-5.1) mmol/L Chloride 96 (96-114) mmol/L Carbon Dioxide 28 (20-32) mmol/L Anion Gap 8 (7-15) mEq/L BUN 13 (7-30) mg/dL Creatinine 0.9 (0.5-1.5) mg/dL Estimated Creat Clear 42.59 Estimated GFR 70 ml/min Glucose 103 (60-115) mg/dL Calcium 8.9 (8.4-10.6) mg/dL TSH 4.380 H (0.270-4.200) uIU/mL Free T4 1.31 (0.70-1.85) ng/dL POC Troponin I 0.00 L (0.01-0.04) ng/ml ECG Data Attestation: I personally reviewed and interpreted this ECG as follows: Interpretation: Atrial fibrillation with rapid ventricular response Rate: 103 KS: Not applicable QRS axis: Normal axis. Low voltage QRS ST segment/T wave: No ST segment elevation or depression QTc: 463 EKG 2. Normal sinus rhythm with first-degree AV block. Rate: 84 KS: 268 QRS axis: Normal axis. Low voltage ST segment/T wave: nonspecific T-wave flattening. No ST segment elevation or depression. QTc: 517 Discharge Plan Discharge Clinical Impression: Atrial fibrillation Patient Disposition: Home, Self-Care Condition: Stable Instructions: A-fib (Atrial Fibrillation) (ED), Blood Thinners (ED) Additional Instructions: As we discussed, please follow-up with your park keeper as soon as possible for recheck. Come back to the ER right away if you have any concerns especially palpitations, lightheadedness, trouble breathing, chest pain, or fainting spells. To minimize the risk of stroke from atrial fibrillation please start on the blood thinner, Eliquis. Continue your other medications at their current doses for now. Prescriptions: New Eliquis 5 mg tablet 5 mg PO BID Qty: 60 2RF No Action irbesartan 300 mg tablet 300 mg PO DAILY chlorthalidone 50 mg tablet PO DAILY atenolol 50 mg tablet PO DAILY rosuvastatin 20 mg tablet 20 mg PO QDAY spironolactone 25 mg tablet PO DAILY aspirin 81 mg tablet,delayed release (DR/EC) PO DAILY meclizine 25 mg tablet 25 mg PO BID-TID PRN (Reason: motion sickness) Qty: 20 0RF Rx Instructions: 1 tablet 2-3 times per day scopolamine base 1 mg over 3 days patch 3 day 1 patch transdermal Q3D PRN (Reason: motion sickness) Qty: 4 0RF Rx Instructions: Change patch every 3 days p.r.n. For motion sickness omeprazole 20 mg capsule,delayed release(DR/EC) 20 mg PO DAILY Qty: 90 3RF levothyroxine [Synthroid] 150 mcg tablet 150 mcg PO QDAY Qty: 90 3RF fluoxetine 40 mg capsule 40 mg PO DAILY Qty: 90 3RF multivitamin PO metformin 500 mg tablet extended release 24 hr 1,000 mg PO QDAY Qty: 180 3RF Rx Instructions: Two tablets once a day peg 3350-electrolytes [Golytely] 236-22.74-6.74 -5.86 gram recon soln 240 ml PO Q10M Qty: 4000 0RF Rx Instructions: until fecal effluent is clear Follow Up/Referrals: Teena Gaytan PA-C [Primary Care Provider] - Stand Alone Forms: [employer] Info Instructions
[2024-10-08 09:45] LABS: Basophils Absolute Auto 0.05 K/uL (0.00-0.30); Basophils Percent Auto 0.8 % (0.0-3.0); Eosinophils Absolute Auto 0.34 K/uL (0.00-0.50); Eosinophils Percent Auto 5.2 % (0.0-7.0); Hematocrit 39.5 % (33.0-51.0); Immature Granulocytes Abs Auto 0.01 K/uL (0.00-0.30); Immature Granulocytes Pct Auto 0.2 %; Lymphocytes Percent Auto 17.6 % (20-44); Mean Corpuscular HGB Conc 33 gm/dL (32-36); Mean Corpuscular Hemoglobin 32 pg (26-34); Mean Corpuscular Volume 96 fL (80-100); Monocytes Percent Auto 7.8 % (0.0-11.0); Neutrophils Absolute Auto 4.48 K/uL (1.7-7.0); Neutrophils Percent Auto 68.4 % (42.0-72.0); Platelet Count* 228 K/uL (140-440); Red Blood Count 4.11 m/uL (4.00-5.20); White Blood Count* 6.54 K/uL (4.50-11.00)
[2024-10-08 09:47] LABS: Slide Review Reflex No
[2024-10-08 10:05] LABS: Chloride* 96 mmol/L (96-114); Potassium* 4.1 mmol/L (3.6-5.1); Sodium* 132 mmol/L (135-149)
[2024-10-08 10:08] LABS: Anion Gap 8 mEq/L (7-15); Blood Urea Nitrogen* 13 mg/dL (7-30); Carbon Dioxide* 28 mmol/L (20-32); Creatinine* 0.9 mg/dL (0.5-1.5); Est. Creatinine Clearance* 42.59; Estimated Glomerular Filt Rate 70 ml/min; Glucose* 103 mg/dL (60-115)
[2024-10-08 10:09] LABS: Calcium* 8.9 mg/dL (8.4-10.6)
[2024-10-08] MEDS: 0.9 % SODIUM CHLORIDE 500 ML 500 ML IV (10:20)
--- OUTSIDE RECORDS SUMMARY | 2024-10-08 10:28 | XMS_ITS | Continuity of Care Document ---
Author Organization [facility] Address [address] [place] [address] Phone Care Team Providers Care Baling Machine Tender Name Role Phone Matt Vizcarra Unavailable Unavailable [...] Available - Active Procedures Procedure Date Office/Outpatient Visit,[facility] 2014 Advance Directives Directive Yes / No Effective Date File Name No Information Encounters Encounter Description Practice Location Reason(s) For Visit Diagnoses Date Provider Providers Copied on Encounter [facility], [address], [place], [id number] , [place] tel: [phone] No Information 5 Lilia Gutierrez. [facility], [address], [address], [place], [id number] , [place]. [phone] Office/Outpat ient Visit,[facility], [address], [place], [id number] , [place] tel: [phone] [facility] [place] LumbagoAcquired spondylolisthesis 9201 [address] Lilia Gutierrez. [facility], [address] [place] [address], [address], [place], [place], [id number] , [place]. [phone] Referring Provider: Brian Rodriguez, [facility] [address] [place] [address], [address], [place], [address] . tel:[phone] Family History Family Member Type Diagnosis Age At Onset No Information Payers Payer name Insurance type Covered democrat ID Authorsilvia castro(s) [facility] [id number] [facility] [id number] Social History Type Description Quantity Date Captured [...]
--- OUTSIDE RECORDS SUMMARY | 2024-10-08 10:29 | XMS_ITS | Encounter Summary ---
Author Organization [facility] Address [address] [place] [address] Care Team Providers Care Rap Artist Name Role Phone Ira Quinonez P.A.-C. Primary Care Provider [phone] Encounter Details Date Type Department Care Team (Latest Contact Info) Description 07/29/2024 Clinical Communication Department of Gastroenterology in [place], [place] [address] [place] [id number] External, Ordering Provider, Jesenia Social History Tobacco Use Types Packs/Day Years Used Date Smoking Tobacco: Former Smokeless Tobacco: Former Alcohol Use Standard Drinks/Week Comments Yes 7 (1 standard drink = 0.6 oz pur e alcohol) [place] Utilities Answer Date Recorded In the past 12 months has e electric, gas, oil, or water company [...] often do you attend chur ch or adventism services? More than 4 times per year 06/15/2021 Do you belong to any clubs o r organizations such as restoration groups, unions, fraternal or athletic groups, or [...] Answer Date Recorded PHQ-2 Score 0 06/19/2021 [facility] [place] [facility] of Occupat ional [facility] - Occupational Stress Questionnaire Answer [...] your living situation today? I have a [facility] place to live 09/10/2023 Education Answer Date Recorded What is the highest level of school you have completed or the highest degree you have received? Associate degree: occupational, technical, or vocational program 12/01/2020 Comments No Sex and Gender Information Value Date Recorded Sex Assigned at Female 12/30/2018 5:42 PM CDT Legal Sex Female 9:22 PM REGULATORY SUBMISSIONS SPECIALIST Gender Identity Female 12/30/2018 5:42 PM CDT Sexual Orientation Straight 12/30/2018 5: 42 PM CDT documented as of this encounter Plan of Treatment Not on file documented as of this encounter Visit Diagnoses Not on filedocumented in this encounter Additional Health Concerns Assessment Noted Time PHQ-9 Depression Total Score: 4 08/06/20 17 8:54 AM REGULATORY SUBMISSIONS SPECIALIST documented as of this encounter Care Teams Rap Artist Relationship Specialty Start Date End Date Ira Quinonez P.A.-C. [address] [place] [address] PCP - General 11/24/20 documented as of this encounter
--- OUTSIDE RECORDS SUMMARY | 2024-10-08 10:29 | XMS_ITS | Clinical Summary ---
Author Organization [facility] Address [address] [place] [address] Care Team Providers Care Social Work Msw Name Role Phone Ira Quinonez P.A.-C. Primary Care Provider [phone]- [phone] Source Comments Patient records contain information from all sites at [facility]. For routine questions regarding patient records, call [phone] during business hours, M-F 8:00 AM - 5:00 PM Central Time. Record requests for emergency care only can be directed to [phone] at any time.[facility] Allergies Active Allergy Reactions Criticality Noted Date Comments Lisinopril Cough 11/22/2017 Medications * This document contains information received from the source organization and may not represent a complete record from that organization. aspirin (LO-DOSE ASPIRIN) [address] tablet Take 1 tablet by mouth daily. 0 Active atenolol (for_TENORMIN) 50 mg tablet Take 1 tablet by mouth daily. 6 Active multivitamin tablet Take by mouth daily. 0 Active rosuvastatin (for_CRESTOR) 20 mg tablet Take 20 mg by mouth daily. Active chlorthalidone (for_HYGROTEN) 50 mg tablet Take 50 mg by mouth daily. Active FLUoxetine (for_PROzac) 40 mg capsule Take 1 capsule (40 mg total) by mouth daily. 90 capsule 3 7 Active levothyroxine (for_SYNTHROID, LEVOTHROID) 112 mcg tablet Take 1 tablet (112 mcg total) by mouth daily. 90 tablet 3 7 Active neomycin-colist -HC-thonzonium (CORTISPORIN-TC ) 3.3-3-10-0.5 mg/mL drops,suspensio n Administer 5 drops into each ear 3 (three) times a day as needed (ear itch). 30 mL 3 7 Active omeprazole 20 mg tablet,delayed release (DR/EC) Take 1 tablet (20 mg total) by mouth daily. 90 tablet 3 7 Active buPROPion (WELLBUTRIN SR) 150 mg 12 hr tablet Take 1 tablet (150 mg total) by mouth daily. Appt due please 90 tablet 8 Active irbesartan (AVAPRO) 150 mg tablet Take [...] Apply 1 application topically as needed. 0 Active metFORMIN XR (GLUCOPHAGE-XR) 500 mg 24 hr tablet 3 Active Active Problems Problem Noted Date Diagnosed [...] Encounters Date Type Department Care Team Description 08/12/2024 Orders Only [facility] MNT Ira Quinonez, Froylan.A.RadhaC. Deficiency Estrogen Post Menopausal; Monitoring For Therapeutic Drug Therapy; Hypothyroidism 07/29/2024 Clinical Communication Department of Gastroenterology in [place], [place] [address] [place] [address] External, Ordering Provider, M.Livia. from Last 3 Months Immunizations Immunization Administration Dates Next Due DTaP (Infanrix, Tripedia) 04/28/2009 H1N1 All Forms 08/29/2009 H1N1 Inj 08/24/2009 Influenza Split 08/29/2009 Influenza TIV (IM) 06/18/2012,,08/20/2009,2006 Influenza high dose QV(65 ye ars or older) (PF) 08/18/2021 Influenza, Injectable, Quadrivalent 06/09,07/01/2019,07/03/2018,2014 Influenza, Seasonal, Injectable 06/18/2012,07/02,07/14/2007 Influenza, Unspecified 06/20/2017,2015,06/21/2015,2013,06/28/2010,07/14/2007 RZV (SHINGRIX) 02/28/2021,11/02/2020 SARS-COV-2 (COVID-19) - MODERNA(Discontinued) 03/06/2022,08/18/2021,12/26/2020,2020 Td Preservative Free (TENIVA C, DECAVAC) 04/28/2009,02/26/2000 Td, (Adult) Unspecified 04/09/2009,02/26/2000 Tdap 10/05/2019,04/28/2009 influenza trivalent vaccine (6 months and older)(PF) 08/29/2009,08/09/2008 influenza vaccine QV(FLUBLOK ) (18 years or [...] drink = 0.6 oz pur e alcohol) [facility] Artwardlyities Answer Date Recorded In the past 12 months has [facility] [employer] oil, or water Fjuul threatened to shut off services in your [...] week 06/15/2021 How often do you attend [facility] or religion services? More than 4 times per year 06/15/2021 Do you belong to any clubs o r organizations such as methodist groups, unions, fraternal or athletic groups, or [...] Answer Date Recorded PHQ-2 Score 0 06/19/2021 [facility] - Occupational [...] your living situation today? I have a [facility] place to live 09/10/2023 Education Answer Date Recorded What is the highest level of school you have completed or the highest degree you have received? Associate degree: occupational, technical, or vocational program 12/01/2020 Comments No Sex and Gender Information Value Date Recorded Sex Assigned at Female 12/30/2018 5:42 PM CDT Legal Sex Female 9:22 PM ACCOUNTS MANAGER Gender Identity Female 12/30/2018 5:42 PM CDT Sexual Orientation Straight 12/30/2018 5: 42 PM CDT Last Filed Vital Signs Vital Sign Reading Time Taken Comments Blood Pressure 114/69 06/19/2021 9:[address] Pulse 66 06/19/2021 9:22 AM CDT Temperature 36.4 C (97.5 F) 06/19/2021 9:22 AM CDT Respiratory Rate 16 06/19/2021 9:22 AM CDT Oxygen Saturation 95% 06/19/2021 9:22 AM CDT Inhaled Oxygen Concentration - - Weight 126 kg (277 lb 9 oz) 06/19/2021 9:22 AM C DT Height 162 cm (5' 3.78) 06/19/2021 9:22 AM CDT Body Mass Index 47.97 06/19/2021 9:22 AM CDT Plan of Treatment Health Maintenance Due Date Last Done Comments Bone Density Scan (Osteoporosis Screen) 1955 CT Colonography 1955 Cologuard 1955 Office Visit for Blood Pressure Check / Re-check 1955 Visit: Chronic Disease, age 18+ 1955 Visit: Medicare Annual Wellness 1955 Thyroid Stimulating Hormone (TSH) test for thyroid function 12/28/2017 12/28/2016, 09/11/2016, 06/29/2016, Additional history exists Creatinine Level (Kidney Function Test) 05/14/2019 05/14/2018, 04/23/2018, 02/20/2018, Additional history exists Potassium Level 05/14/2019 05/14/2018, 04/09, 02/20/2018, Additional history exists Sodium Level 05/14/2019 05/14/2018, 04/09, 02/20/2018, Additional history exists Fasting Glucose for Diabetes Screening 05/14/2021 05/14/2018, 04/23/2018, 02/20/2018, Additional history exists Mammogram 10/31/2022 10/31/2021, 10/11, 10/26/2019, Additional history exists Lipid (Cholesterol) Screening 02/10/2024 02/09/2019, 12/28/2016, 11/14/2016, Additional history exists COVID-19 Vaccine ( season) 2024 06/26/2023, 03/06/2022, 08/18/2021, Additional history exists Influenza Vaccine (#1) 2024 , 07/16/2022, 08/18/2021, Additional history exists Colonoscopy 07/06/2024 07/06/2021, 05/10, 02/04/2015, Additional history exists Colorectal Cancer Surveillance 07/06/2024 Depression Screening (Annual PHQ-2) 09/09/2024 Fall Risk Screen (Annual) 09/09/2024 DTaP,Tdap,and Td Vaccines (5 - Td or Tdap) 10/05/2029 10/05/2019, 04/28/2009, 04/28/2009, Additional history exists Hepatitis C Screening Completed 08/06/2017 Zoster Vaccines Completed 02/28/2021, 11/02/2020 Cervical/Vaginal Cancer Screening Discontinued 03/17/2021, 05/02/2020, 08/18/2018, Additional history exists Pneumococcal vaccine (50+ years) Completed 12/10/2022, 11/13/2021 IPV Vaccines Aged Out No longer eligi ble based on patient's age to complete this topic Procedures Procedure Name Priority Date/Time Associated Diagnosis Comments BI BREAST SCREENING BILATERAL WITH TOMOSYNTHESIS RAD - Routine (most inpatients and all outpatients) 10/31/2021 10:22 AM ACCOUNTS MANAGER Screening Mammogram Breast Cancer GLUCOSE, FASTING, S/P Routine 08/06/2017 10:23 AM ACCOUNTS MANAGER Screening Examination Diabetes Mellitus HCV AB SCRN W/REFLEX TO HCV PCR, S Routine 08/06/2017 10:23 AM ACCOUNTS MANAGER Screening Test Laboratory LIPID PANEL, S Routine 12/28/2016 10:50 AM CDT THYROID-STIMULATING HORMONE-SENSITIVE (S-TSH) Routine 12/28/2016 10:50 AM CDT SODIUM, S/P Routine 06/29/2016 9:09 AM CDT POTASSIUM, S/P Routine 06/29/2016 9:09 AM CDT CREATININE WITH EGFR, S/P Routine 06/29/2016 9:09 AM CDT COLONOSCOPY Routine 01/24/2015 1:00 PM CDT PATHOLOGY POLISHING WHEEL REPAIRER CYTOLOGY Routine 06/08/2014 12:00 AM CDT from Last 3 Months or Most Recently Relevant to Health Maintenance Results * BI Breast Screening Bilateral with Tomosynthesis (10/31/2021 10:22 AM ACCOUNTS MANAGER) Anatomical Region Laterality Modality Breast, Breast Imaging RST L OS, Breast Imaging ARZ LOS, Breast Imaging FLA LOS Bilateral Mammography 10/31/2021 11:5 3 AM ACCOUNTS MANAGER Impressions 10/31/2021 11:55 AM ACCOUNTS MANAGER Negative. RECOMMENDATION: Annual Screening Mammogram ASSESSMENT: BI-RADS: 1: Negative. Narrative 10/31/2021 11:55 AM ACCOUNTS MANAGER EXAM: BI BREAST SCREENING BILATERAL WITH TOMOSYNTHESIS Current study was evaluated with a Computer Aided Detection (CAD) system. INDICATION: Screening mammogram. COMPARISON: Prior exam(s) were available and reviewed for comparison. DENSITY: b. There are scattered areas of fibroglandular density. FINDINGS: No mammographic findings of malignancy. Procedure Note Arabella [...] Annual Screening Mammogram ASSESSMENT: BI-RADS: 1: Negative. us Ira Quinonez P.A.-C. IMG BI PROCEDURES Final Re sult * HCV Ab Scrn w/Reflex to HCV PCR (08/06/2017 10:23 AM ACCOUNTS MANAGER) HCV Ab Screen, S Negative Negative 08/07/2017 11:28 AM ACCOUNTS MANAGER [facility] Comment:Owdabp-zh-acoabv rat io is <1.00. Blood (Blood, Venous) 08/06/2017 10:23 AM ACCOUNTS MANAGER 08/07/2017 6:31 AM ACCOUNTS MANAGER us Johnna Judd M.D. LAB MICROBIOLOGY - BLOOD ORD ERABLES Final Result Performing Organization Address City/[facility]/ZIP Co de Phone Number [facility] [address] [place] [address] * Glucose, Fasting (08/06/2017 10:23 AM ACCOUNTS MANAGER) Glucose, Fasting, S 96 70 - 99 mg/dL 08/06/2017 12:52 PM ACCOUNTS MANAGER [facility] Blood (Blood, Venous) 08/06/2017 10:23 AM ACCOUNTS MANAGER 08/06/2017 10:26 AM ACCOUNTS MANAGER us Johnna Judd M.D. LAB BLOOD NON ADD-ON Final R esult [facility] [address] [place] [address], [facility] * (ABNORMAL) Lipid Panel (12/28/2016 10:50 AM [...] for FH and FDB is available through [facility]: FH/ADH Genetic Reflex Panel (test ADHP). Acquired (non-genetic) causes of markedly increased LDL cholesterol include cholestatic liver disease due to the presence of LpX. If a genetic form of hypercholesterolemia is suspected, family studies including biochemical testing for lipids (total cholesterol,triglycerides, LDL cholesterol and HDL cholesterol) are recommended. Please contact the laboratory at or the on-line test catalog at [facility] for information about how to order these tests or to speak with a genetic counselor. Further interpretation would require clinical information. Total Cholesterol/HDL Ratio 5.00 POWERCHART HXLDL/HDL 2 POWERCHART Blood 12/28/2016 10:5 0 AM CDT Result Beth Judd M.D. LAB BLOOD ADD-ON Final Resul t POWERCHART * Thyroid-Stimulating Hormone-Sensitive (s-TSH) (12/28/2016 10:50 AM CDT) TSH (Thyrotropin) 4.07 0.27 - 4.20 MIUL POWERCHART Comment: Biotin has been identified by the controls engineer as a potential interfering substance. Higher concentrations of biotin may be found in multivitamins, hair/nail supplements, and workout supplements. If the result does not match clinical observations, repeat testing after patient refrains from the use of supplements for at least 12 hours. Blood 12/28/2016 10:5 0 AM CDT Result Beth Judd M.D. LAB BLOOD ADD-ON Final Resul t POWERCHART * Sodium (06/29/2016 9:09 AM CDT) Sodium, S 140 135 - 145 MMOLL POWERCHART Blood 06/29/2016 9:09 AM CDT us Johnna Judd M.D. LAB BLOOD ADD-ON Final Resul t Performing Organization Address City/[facility] Co de Phone Number POWERCHART * Potassium (06/29/2016 9:09 AM CDT) Potassium, S 5.0 3.6 - 5.2 MMOLL POWERCHART Blood 06/29/2016 9:09 AM CDT us Johnna Judd M.D. LAB BLOOD ADD-ON Final Resul t Performing Organization Address [facility] Co de Phone Number POWERCHART * Creatinine with eGFR (06/29/2016 9:09 AM CDT) Creatinine 0.88 0.60 - 1.10 MGDL POWERCHART HXeGFR (MDRD) >60 >=60 [id number] POWERCHART eGFR Black/ >60 >=60 [id number] POWERCHART Blood 06/29/2016 9:09 AM CDT us Johnna Judd M.D. LAB BLOOD ADD-ON Final Resul t Performing Organization Address [facility] de Phone Number POWERCHART * Colonoscopy (01/24/2015 1:00 PM CDT) 01/24/2015 1:00 PM CDT us Cesar Garcia M.D. GI PROCEDURE ORDERABLES Final Result Performing Organization Address [facility] Co de Phone Number [facility] [address] [place] [address] * Pathology POLISHING WHEEL REPAIRER Cytology (06/08/2014 12:00 AM CDT) 06/08/2014 Narrative [facility] - 06/17/2014 8:27 AM CDT [facility] in [address] [place] [address] Patient Name: IRAIDA HO PRINCE Collected: 06/08/2014 Address: City/State/Zip: [address] [place] [address] [place] [id number] Received: Reported: 06/09/2014 06/15/2014 Soc. Sec. #: /Age/Sex 1955 (Age: 58) F Physician(s): BERE GURROLA MD Copy To: [facility] [id number] [address] [place] [address] CYTOPATHOLOGY POLISHING WHEEL REPAIRER REPORT FINAL CYTOLOGIC DIAGNOSIS Pap Smear - ThinPrep: NEGATIVE FOR INTRAEPITHELIAL LESION OR MALIGNANCY ENDOCERVICAL CELLS/COMPONENT PRESENT. SATISFACTORY SPECIMEN FOR EVALUATION. Electronically Signed Out By amb/06/15/2014 RONALD COMBS(ASCP) MAYNOR Lin CT(ASCP) The Pap test is a screening procedure and, as such, is subject to both false positive and false negative results as evidenced by published data. It is not a diagnostic test and results should be interpreted in the context of the patient's history and other clinical findings. Obtaining periodic Pap tests may help to minimize the consequences of any false negatives that may occur. Procedures/Addenda: HUMAN PAPILLOMA VIRUS TESTING (HPV) Date Ordered: 06/17/2014 Status: Signed Out Date Complete: 06/17/2014 By: PAZ COMBS(ASCP) Date Reported: 06/17/2014 INTERPRETATION: Test: CervistaTM High Risk HPV Result: NEGATIVE FOR HIGH RISK HPV Specimen Description: ThinPrep Pap Test PreservCyt Solution The FDA-approved Hologic CervistaTM HPV High Risk Test is an in vitro diagnostic test for the qualitative detection of DNA from 14 high-risk Human Papillomavirus (HPV) types (16, 18, 31, 33, 35, 39, 45, 51, 52, 56, 58, 59, 66, and 68) in cervical specimen using the Invader chemistry, a signal amplification method for detection [...] TYPING REQUESTED Nazia Snow M.D. LAB PAP [place] Edited Result - Final [facility] from Last 3 Months or Most Recently Relevant to Health Maintenance Insurance [place] [id number] GENERIC MEDICARE ADVANTAGE Advance Directives For more information, please contact: [phone] Documents on File Type Date Recorded Patient Racquet Maker Expl anation Advance Directives 02/05/2012 12:00 AM Leg acy document. See document viewer. Care Teams Social Work Msw Relationship Specialty Start Date End Date Ira Quinonez P.A.-C. [address] [phone] PCP - General 11/24/20
--- OUTSIDE RECORDS SUMMARY | 2024-10-08 10:29 | XMS_ITS | Clinical Summary ---
Author Organization [facility] Address [place], [place] [address] Care Team Providers Care Noodle Maker Name Role Phone Teena Gaytan PA-C Primary Care Provider [phone] Allergies Active Allergy Reactions Criticality Noted Date Comments Lisinopril Cough 11/22/2017 Medications fluoxetine (PROZAC) 40 mg capsule Take 40 [...] ITCHING / BUG BITES TWICE DAILY NEEDED 06/02/20 20 Active levothyroxine (SYNTHROID) 150 mcg tabletIndicatio ns:Hypothyroidi sm, unspecified type Take 1 Tablet (150 mcg) by mouth before breakfast. 09/23/19 24 Active metFORMIN (GLUCOPHAGE XR) 500 mg Extended-Releas e tablet Take 500 mg by mouth two times daily with meals. 07/15/20 23 Active irbesartan (AVAPRO) 300 mg tabletIndicatio ns:Hypertension , unspecified type Take 1 Tablet (300 mg) by mouth once daily. 90 Tablet 3 09/23/19 24 Active chlorthalidone (HYGROTON) 50 mg tabletIndicatio ns:HTN (hypertension) Take 1 Tablet (50 mg) by mouth once daily in the morning. Additional refills require cardiology appt WITH NEW I PROVIDER. Please call [phone] to schedule 90 Tablet 09/14/19 25 Active spironolactone (ALDACTONE) 25 mg tabletIndicatio ns:HTN (hypertension), Edema, unspecified type Take 1 Tablet (25 mg) by mouth once daily in the morning. Additional refills require cardiology appt WITH NEW I PROVIDER. Please call [phone] to schedule 90 Tablet 09/14/19 25 Active atenoloL (TENORMIN) 50 mg tabletIndicatio ns:HTN (hypertension) Take 1 Tablet (50 mg) by mouth once daily. Additional refills require cardiology appt WITH NEW I PROVIDER. Please call [phone] to schedule 90 Tablet 09/14/19 25 Active rosuvastatin (CRESTOR) 20 mg tabletIndicatio ns:ASHD (arteriosclerot ic heart disease) Take 1 Tablet (20 mg) by mouth once daily. Further refills require cardiology appointment 90 Tablet 10/01/19 25 Active atenoloL (TENORMIN) 50 mg tabletIndicatio ns:HTN (hypertension) Take 1 Tablet (50 mg) by mouth once daily. 90 Tablet 3 09/23/19 24 025 Discontinued rosuvastatin (CRESTOR) 20 mg tabletIndicatio ns:ASHD (arteriosclerot ic heart disease) Take 1 Tablet (20 mg) by mouth once daily. 90 Tablet 3 09/23/19 24 025 Discontinued spironolactone (ALDACTONE) 25 mg tabletIndicatio ns:HTN (hypertension), Edema, unspecified type Take 1 Tablet (25 mg) by mouth once daily. 90 Tablet 3 09/23/19 24 025 Discontinued chlorthalidone (HYGROTON) 50 mg tabletIndicatio ns:HTN (hypertension) Take 1 Tablet (50 mg) by mouth every morning. 90 Tablet 3 09/23/19 24 025 Discontinued Active Problems Problem Noted Date Diagnosed Date ASHD (arteriosclerotic heart disease) 01/03/2017 Palpitations 01/03/2017 HTN (hypertension) 01/03/2017 Dyslipidemia 01/03/2017 JONATHON (obstructive sleep apnea) 01/03/2017 Urinary, incontinence, stress female 09/07/2009 Encounters Date Type Department Care Team Description 09/30/[address] [facility] [address] [facility] [address] [place] [phone] Michi Urbina MD Refill Request (Rosuvastatin) 09/13/[address] [facility] [address] [facility] [address] [place] [phone] Gema De León MD Refill Request (Chlorthalidone, Spironolactone, Atenolol) from Last 3 Months Immunizations Name Administration [...] Paying Living Expenses Not on file 09/09/2021 Interpersonal Safety Answer Date Record ed Are you being hit, kicked, p ushed or yelled at (see row info)? No 04/15/2024 Interpersonal Safety Abuse 12 - 18 Not on file 04/15/2024 Interpersonal Safety Ambulatory Vulnerability No t on file 04/15/2024 Comments No Sex and Gender Information Value Date Recorded Sex Assigned at Not on file Legal Sex Female 7:00 AM ASSOCIATE FINANCIAL ANALYST Gender Identity Not on file Sexual Orientation Not on file Obstetrics History Last Filed Vital Signs Vital Sign Reading Time Taken Comments Blood Pressure 164/70 04/15/2024 7:24 PM CDT Pulse 69 04/15/2024 7:51 PM CDT Temperature 36.6 C (97.9 F) 04/15/2024 7:24 PM CDT Respiratory Rate 16 04/15/2024 7:24 PM CDT [...] C screening for ag e 18-79 1974 Pneumococcal series for age 50+ (1 of 2 - PCV) 1975 Mammogram for age 45-75 2001 Zoster (shingles) series for age 50+ (1 of 2) 2006 RSV vaccine for adults or (1 - Risk 60-74 years 1-dose series) 2016 Tetanus booster 04/28/2019 04/28/2009, 0809/2008, 02/26/2000, Additional history exists DEXA/DXA scan for age 65+ 2021 Medicare Wellness for age 65+ 2021 Lipids for age 45-75 02/10/2024 02/09/2019, 01/23/20 18 COVID-19 vaccine series ( season) 2024 06/26/2023, 03/06/2022, 08/18/2021, Additional history exists Influenza for age 65+ 05/10/2024 07/03/2018 , 06/20/2017, 06/20/2017, Additional history exists BMI (ht and wt on same day) for age 18+ 09/23/2024 09/23/2023, 09/17/2022, 10/16/2021, Additional history exists Colonoscopy through age 75 07/06/2031 07/06/2021, Tdap Completed 04/28/2009 Medical Devices Implanted Type Area Networking Specialist Device Identifier Shelf Expiration Date Model / Serial / Lot Sys Urethral Support Align 50cm - [id number] Implanted:Qty: 1 on 09/07/2009 at [facility] 07/10/2011 [id number] / / [id number] Procedures Procedure Name Priority Date/Time Associated Diagnosis [...] the bowel preparationwas evaluated using the BBPS (Corbett Bowel Preparation Scale) with scores of: Right [...] electronically. Note Initiated On: 07/06/2021 10:49 AM us Pablo Flor MD PROCEDURE ORD Final Res ult * (ABNORMAL) LIPID PANEL (02/09/2019 2:47 PM CDT) CHOLESTEROL,TOTAL 144 100 - 199 mg/dL 02/09/2019 6:46 PM CDT [facility] TRIGLYCERIDES 263(H) <150 mg/dL 02/09/2019 6:46 PM CDT [facility] HDL CHOLESTEROL 45 >40 mg/dL 9 6:46 PM CDT [facility] NON-HDL CHOLESTEROL 99 <145 mg/dl 02/09/2019 6:46 PM CDT [facility] CHOL/HDL RATIO 3.20 <4.50 02/09/2019 6:46 PM CDT [facility] LDL CHOLESTEROL 46 <=130 mg/dL 02/09/2019 6:46 PM CDT [facility] PROVIDER ORDERED STATUS RANDOM 02/09/2019 6:46 PM CDT [facility] Blood BLOOD SPECIMEN / Unknown Venipuncture / Unknown 02/09/2019 2:47 PM CDT 02/09/2019 2:47 PM CDT us Michi Urbina MD CHEMISTRY Final Resul t [facility] [address] [place] [address], [place] from Last 3 Months or Most Recently Relevant to Health Maintenance Insurance [employer] ADVANTAGE [place] [id number] Advance Directives * Full Code (Latest Code [...] 11:27 AM 09/07/2009 11:17 PM Care Teams Noodle Maker Relationship Specialty Start Date End Date Teena Gaytan PA-C [address] [place] [address] PCP - General Emergency Medicine 04/27/20
--- OUTSIDE RECORDS SUMMARY | 2024-10-08 10:29 | XMS_ITS | Encounter Summary ---
Author Organization [facility] Address [address] [place] [address] Care Team Providers Care Cns Name Role Phone Ira Quinonez P.A.-C. Primary Care Provider [phone]- [phone] Encounter Details Date Type Department Care Team (Late st Contact Info) Description 05/17/2017 Historical Ophthalmology [facility] Dae Sánchez M.D. [address] [facility] [place] [phone] Social History Tobacco Use Types Packs/Day Years Used Date Smoking Tobacco: Former Comments Unknown Sex and Gender Information Value Date Recorded Sex Assigned at Female 12/30/2018 5:42 PM CDT Legal Sex Female 9:22 PM WATER COMMISSIONER Gender Identity Female 12/30/2018 5:42 PM CDT [...] CPAP related. CDM Reports - EYEGEN Id: [id number] Status: Fnl documented in this encounter Plan [...] documented as of this encounter Care Teams Cns Relationship Specialty Start Date End Date Ira Quinonez P.A.-C. [address] [place] [phone] PCP - General 11/24/20 documented as of this encounter
--- OUTSIDE RECORDS SUMMARY | 2024-10-08 10:29 | XMS_ITS | Encounter Summary ---
Author Organization [facility] Address [address] [place] [address] Care Team Providers Care Soa Integration Developer Name Role Phone Ira Quinonez P.A.-C. Primary Care Provider +1- [phone] Encounter Details Date Type Department Care Team (Late st Contact Info) Description 06/07/2017 Historical Ophthalmology [facility] Dae Sánchez M.D. [address] [place] [phone] Social History Tobacco Use Types Packs/Day Years Used Date Smoking Tobacco: Former Comments Unknown Sex and Gender Information Value Date Recorded Sex Assigned at Female 12/30/2018 5:42 PM CDT Legal Sex Female 9:22 PM SHIP'S OFFICER Gender Identity Female 12/30/2018 5:42 PM CDT [...] new Rx. CDM Reports - EYEGEN Id: [id number] Status: Fnl documented in this encounter Plan [...] documented as of this encounter Care Teams Soa Integration Developer Relationship Specialty Start Date End Date Ira Quinonez P.A.-C. [address] [place] [phone] PCP - General 11/24/20 documented as of this encounter
[2024-10-08 11:27] LABS: Free T4 Free Thyroxine* 1.31 ng/dL (0.70-1.85)
== END 2024-10-08 12:11 | disposition home or self-care (01) ==
PROVIDERS: Emergency Provider Emergency Medicine; PCP Physician Assistant Medical
DX: I48.91 Unspecified atrial fibrillation (principal)
CPT/HCPCS: 36415; 80048; 84439; 84443; 84484; 85025; 93005; 94761; 99284; J7030

== ENCOUNTER 2024-10-22 12:29 | Outpatient (CLI) | payer OTHER, SELFPAY | END 2024-10-22 12:30 | disposition home or self-care (01) | LOC: CT 12:30 | PROVIDERS: PCP Physician Assistant Medical; Visit Provider Student in an Organized Health Care Education/Training Program | DX: C21.8 Malignant neoplasm of overlapping sites of rectum, anus and anal canal (principal); K44.9 Diaphragmatic hernia without obstruction or gangrene; I25.10 Atherosclerotic heart disease of native coronary artery without angina pectoris | CPT/HCPCS: 71270; 72197; 74178; A9575; Q9967 ==

== ENCOUNTER 2024-12-16 08:32 | Outpatient (CLI) | payer OTHER, SELFPAY | END 2024-12-16 08:33 | disposition home or self-care (01) | LOC: NFLDREF 12-21 16:25 | PROVIDERS: PCP Physician Assistant Medical; Referring Provider Physician Assistant Medical; Visit Provider Physician Assistant Medical | DX: I10 Essential (primary) hypertension (principal); E78.5 Hyperlipidemia, unspecified; E03.9 Hypothyroidism, unspecified; R73.03 Prediabetes | CPT/HCPCS: 80053; 80061; 84443 ==

== ENCOUNTER 2025-06-08 16:33 | Outpatient (CLI) | payer OTHER, SELFPAY ==
--- NOTE | 2025-06-08 17:00 | CRLHL7_ITS ---
For Patients: As a result of the Century Cures Act, medical imaging exams and procedure reports are released immediately into your electronic medical record. You may view this report before your referring provider. If you have questions, please contact your health care provider. INDICATION: BILATERAL SCREENING MAMMOGRAM, ASYMPTOMATIC 69 Y/O FEMALE COMPARISON: 05/08/2024, 02/27/2023, 10/31/2021 TECHNIQUE: Digital mammogram in CC and MLO projections including computer-aided detection (CAD) and tomosynthesis. BREAST COMPOSITION: There are scattered areas of fibroglandular density. FINDINGS: No suspicious findings. ASSESSMENT: BI-RADS 1 Negative RECOMMENDATION: Annual screening mammogram. A lay language report of this examination will be provided to the patient. Dictated by: Serg Franco MD @ 06/09/2025 10:48:03 (Electronically Signed)
== END 2025-06-08 16:34 | disposition home or self-care (01) ==
LOC: MAMMO 16:33
PROVIDERS: PCP Physician Assistant Medical; Visit Provider Physician Assistant Medical
DX: Z12.31 Encounter for screening mammogram for malignant neoplasm of breast (principal)
CPT/HCPCS: 77063; 77067